=== PATIENT | female | born 1970 | race Caucasian/White ===

== ENCOUNTER → 2019-09-08 15:48 | Outpatient (CLI) | payer OTHER, SELFPAY ==
--- NOTE | ~2019-09-08 | MM_ITS ---
EXAMINATION: MM screening [facility] BI w moi HISTORY: Screening mammogram TECHNIQUE: Craniocaudal and mediolateral oblique 3-D tomosynthesis images were obtained and synthetic 2-D images were generated. CAD analysis was submitted and interpreted. COMPARISON: Comparison to multiple prior studies sequentially, with oldest reviewed study dated 07/08. BREAST PARENCHYMAL COMPOSITION: There are scattered areas of fibroglandular density. FINDINGS: There is no evidence of suspicious mass, calcification, or architectural distortion to sugg est malignancy in either breast. There has been no suspicious interval change. IMPRESSION: 1. No mammographic evidence of malignancy. 2. Recommend routine screening mammography in one year. BI-RADS Category 1: Negative Reviewed, dictated and finalized at location A.
== END ==
PROVIDERS: PCP Internal Medicine; Visit Provider Obstetrics & Gynecology
DX: Z12.31 Encounter for screening mammogram for malignant neoplasm of breast (principal)
CPT/HCPCS: 77063; 77067

== ENCOUNTER 2020-10-13 18:19 | Emergency (ER) | payer OTHER, SELFPAY ==
[2020-10-13 18:48] VITALS: BP 135/85; PULSE 96; RESP 17; TEMP 36.8; O2SAT 97
[2020-10-13 19:51] VITALS: BP 121/87; PULSE 84; RESP 18; O2SAT 97
--- NOTE | 2020-10-13 19:58 | ED.GENADULT ---
HPI - General Adult General Chief complaint: Nausea/Vomiting/Diarrhea Stated complaint: stomach flu since Sunday Time Seen by Provider: 10/13/20 19:47 Source: patient and RN notes reviewed Mode of arrival: ambulatory Limitations: no limitations History of Present Illness HPI narrative: Patient is a 49-year-old female who presents to emergency department for evaluation of vomiting and diarrhea since Sunday her has had similar symptoms prior to her patient notes that she has inability to keep down fluids patient noted vomiting and diarrhea. Patient now has left-sided migraine with history of migraines but has been unable to take her medications secondary to vomiting Related Data Allergies Allergy/AdvReac Type Severity Reaction Status Date / Time penicillin G Allergy Unknown Verified 01/28/13 14:42 Penicillins Allergy Unknown Verified 02/07/10 09:03 Review of Systems Review of Systems: All systems reviewed & are unremarkable except as noted in HPI and below PMFSH Past Medical History Medical History (Updated 10/13/20 @ 20:02 by Arden Bergman PA-C) Migraine headache Family History Family History (Updated 06/20/17 @ 10:40 by DOCTOR UNKNOWN) Father Patient's father is in good health Diabetes mellitus Hypertension Family history of malignant neoplasm Mother Family history of malignant neoplasm of breast in first degree relative Social History Social History Smoking status: Never smoker Second hand tobacco smoke exposure: No Alcohol intake: never Exam Narrative: Exam Narrative: GENERAL: Well-appearing, obese, and in no acute distress. HEAD: Normocephalic, atraumatic. EYES: PERRLA and EOMI. ENT: Nares clear, no rhinorrhea or epistaxis. Mucous membranes moist. CHEST: Clear to auscultation. No respiratory distress. No wheezes rales or rhonchi HEART: Regular rate and rhythm. No murmur heard. Normal peripheral pulses. ABDOMEN: Soft, nontender, nondistended EXTREMITIES: Normal range of motion. No edema. SKIN: Warm, dry, no rash. NEURO: No focal deficits. Alert and oriented x3. Cranial nerves II through XII grossly intact PSYCH: Normal mood and affect. Course Course Emergency Course: Patient evaluated for symptoms of vomiting diarrhea migraine was medicated with improvement will be discharged home treated outpatient afebrile nontoxic-appearing no high risk changes in the blood work felt appropriate for reevaluation on outpatient basis given reasons to return Vital Signs Vital signs: Vital Signs Temperature 98.2 F 10/13/20 18:48 Pulse Rate 96 10/13/20 18:48 Respiratory Rate 17 10/13/20 18:48 Blood Pressure 135/85 10/13/20 18:48 Pulse Oximetry 97 10/13/20 18:48 Temperature 98.2 F 10/13/20 18:48 Pulse Rate 84 10/13/20 19:51 Respiratory Rate 18 10/13/20 19:51 Blood Pressure 121/87 10/13/20 19:51 Pulse Oximetry 97 10/13/20 19:51 Medical Decision Making [facility] Narrative Medical decision making narrative: Patient in the room no distress resting comfortably with improvement with medication Vital Signs Vital Signs: Vital Signs Temperature 98.2 F 10/13/20 18:48 Pulse Rate 96 10/13/20 18:48 Respiratory Rate 17 10/13/20 18:48 Blood Pressure 135/85 10/13/20 18:48 Pulse Oximetry 97 10/13/20 18:48 Temperature 98.2 F 10/13/20 18:48 Pulse Rate 84 10/13/20 19:51 Respiratory Rate 18 10/13/20 19:51 Blood Pressure 121/87 10/13/20 19:51 Pulse Oximetry 97 10/13/20 19:51 Lab Data Result diagrams: 10/13/20 19:55 10/13/20 19:55 Labs: Lab Results 10/13/20 10/13/20 Range/Units 19:55 19:55 WBC 4.1 L (4.5-10.0) K/mm3 RBC 5.31 (4.2-5.4) M/mm3 Hgb 14.6 (12.0-15.0) g/dL Hct 45.0 (37.0-47.0) % MCV 84.7 (80-100) fl MCH 27.5 (26-34) pg MCHC 32.4 (32-36) g/dl RDW 14.2 (11.5-14.5) % Plt Count 206 (150-375) k/
[2020-10-13 20:01] LABS: Basophils Percent Auto 0.2 % (0.2-1.2); Eosinophils Percent Auto 0.7 % (0-4.4); Hemoglobin 14.6 g/dL (12.0-15.0); Immature Granulocyte Absolute 0.02 K/mm3 (0.00-0.031); Immature Granulocyte Percent A 0.5 % (0-0.5); Lymphocytes Absolute Auto 0.74 K/mm3 (0.9-3.2); Lymphocytes Percent Auto 18.1 % (18.3-44.2); Mean Corpuscular HGB Conc 32.4 g/dl (32-36); Mean Corpuscular Hemoglobin 27.5 pg (26-34); Mean Corpuscular Volume 84.7 fl (80-100); Mean Platelet Volume 10.9 fl (7.4-10.4); Monocytes Absolute Auto 0.6 K/mm3 (0.1-0.6); Monocytes Percent Auto 13.5 % (2.6-8.5); Neutrophils Absolute Auto 2.7 K/mm3 (1.3-6.7); Platelet Count Result 206 k/mm3 (150-375); Red Blood Count 5.31 M/mm3 (4.2-5.4); Red Cell Distribution Width 14.2 % (11.5-14.5); White Blood Count 4.1 K/mm3 (4.5-10.0)
[2020-10-13] MEDS: SODIUM CHLORIDE 0.9% IV 1,000 ML 999 ML IV CONT (20:03)
[2020-10-13] MEDS: KETOROLAC 30 MG/ML VIAL (*BKC) IV PUSH (20:05)
[2020-10-13] MEDS: diphenhydrAMINE HCl INJ 50 MG/ML VIAL 25 MG IV PUSH (20:05)
[2020-10-13 20:11] LABS: Alanine Aminotransferase 21 U/L (4-35); Albumin Level 4.8 g/dL (3.5-5.1); Alkaline Phosphatase 76 U/L (38-126); Anion Gap 10 mmol/L (8-16); Aspartate Amino Transferase 33 U/L (14-36); Bilirubin,Total 0.5 mg/dL (0.2-1.3); Blood Urea Nitrogen 13 mg/dL (7-17); Calcium 8.9 mg/dL (8.4-10.2); Carbon Dioxide 26 mmol/L (22-30); Chloride 103 mmol/L (98-107); Estimated Glomerular Filt Rate > 60; Glucose 106 mg/dL (65-105); Lipase 39 U/L (23-300); Potassium 3.2 mmol/L (3.4-5.0); Sodium 139 mmol/L (137-145)
[2020-10-13] MEDS: LORazepam INJ (*CRX) 2 MG/ML VIAL 1 MG IV PUSH (20:55)
[2020-10-13] MEDS: METOCLOPRAMIDE HCL INJ 10 MG/2 ML VIAL IV PUSH (20:55)
[2020-10-13 21:00] VITALS: BP 116/75; PULSE 74; RESP 16; O2SAT 96
[2020-10-13 21:50] VITALS: BP 105/63; PULSE 78; RESP 16; O2SAT 96
== END 2020-10-13 21:50 | disposition home or self-care (01) ==
PROVIDERS: Emergency Provider Emergency Medicine; PCP Internal Medicine
DX: R51.9 Headache, unspecified (principal); R10.9 Unspecified abdominal pain
CPT/HCPCS: 36415; 80053; 83690; 85025; 96361; 96374; 96375; 99284; J1200; J1885; J2060; J2765; J7030

== ENCOUNTER 2021-04-15 00:55 | Day surgery (SDC) | payer OTHER, SELFPAY ==
[2021-04-07 12:10] VITALS: BMI 41.2
[2021-04-15 09:35] VITALS: BP 138/110; PULSE 75; RESP 20; TEMP 36.4; O2SAT 98; BMI 40.1
--- NOTE | 2021-04-15 09:56 | PM.HPGS ---
History of Present Illness History of Present Illness Consent: Risks, benefits, and alternatives have been discussed and questions answered. Patient agrees to proceed with procedure. Chief complaint: GERD Narrative: Cristina Cornejo is a 50 year old female with gerd for years but lately more symptomatic and sometimes waking up at night with heartburn. She tried rounds of prevacid and prilosec that helped while she was taking but not using anything in daily basis. Review of Systems Constitutional: Constitutional: Denies headache(s) and Denies weakness Eyes: Eyes: Denies blurry vision ENT: Reports Normal hearing present, Denies headache(s) and Denies neck pain Cardiovascular: Cardiovascular: Denies chest pain and Denies dyspnea Respiratory: Respiratory: Denies dyspnea Gastrointestinal: Gastrointestinal: Reports no additional gastrointestinal complaints Genitourinary: Genitourinary: Denies dysuria Musculoskeletal: Musculoskeletal: Denies neck pain Integumentary/Breasts: Skin/Breast: Denies dry skin Neurologic: Reports Normal hearing present, Denies headache(s) and Denies weakness Psychiatric: Psychiatric: Denies anxiety Endocrine: Endocrine: Denies change in body appearance Hematologic/Lymphatic: Hematologic/Lymphatic: Denies easy bleeding Allergic/Immunologic: Allergic/Immunologic: Denies urticaria PMFSH Past Medical History Medical History Migraine headache Family History Family History Father Patient's father is in good health Diabetes mellitus Hypertension Family history of malignant neoplasm Mother Family history of malignant neoplasm of breast in first degree relative Social History Social History Smoking status: Never smoker Second hand tobacco smoke exposure: No Alcohol intake: never Substance use: never Substance use type: does not use Living arrangements: alone Spiritual care concerns: No Meds Home Medications and Allergies Home Medications Medication Instructions Recorded Confirmed Type onabotulinumtoxinA 200 unit 200 unit IM ONCE 11/03/20 04/07/21 History solution for injection sumatriptan succinate 100 mg tablet 100 mg PO ONCE 11/03/20 04/07/21 History Allergies Allergy/AdvReac Type Severity Reaction Status Date / Time penicillin G Allergy Unknown Unknown Verified 04/15/21 09:34 Penicillins Allergy Unknown Unknown Verified 04/15/21 09:34 Vital Signs Vital Signs - 24 hr 04/15/21 09:35 Temperature 97.5 F L Pulse Rate 75 Respiratory Rate 20 Blood Pressure 138/110 H Pulse Oximetry 98 Exam Const: General: comfortable and no acute distress HENMT: General nose exam: Normal nares present Eyes: General: appearance normal, both eyes and all related structures Neck: Neck: no JVD Resp: Auscultation: clear to auscultation bilaterally Cardio: Rate: regular rate Rhythm: regular rhythm GI: Inspection: non-distended GI Palp: Yes Soft to palpation Skin: General skin exam: normal color Neuro: General: gait normal Speech: normal speech Extrem: General: normal to inspection Psych: Mental Status: mental status grossly normal Assessment and Plan Assessment and plan (1) Gastro-esophageal reflux disease without esophagitis: Code(s): K21.9 - Gastro-esophageal reflux disease without esophagitis Status: Acute Assessment and Plan: egd with bx, probably will need ppi daily
--- NOTE | 2021-04-15 09:57 | P.PNAN_ITS ---
Anes - Initial Pre Proc Eval Procedure: Operation Date: 04/15/21 10:30 Proposed Procedures p Esophagogastroduodenoscopy - Jose J Giron MD Date/Time: 04/15/21 09:57 Surgeon: Jose J Giron MD Pre Op Diagnosis: GERD Patient Data Age: 50 Gender: F Height: 1.63 m Weight: 106.2 kg Last Vital Signs Temp 97.5 F L 04/15/21 09:35 Pulse 75 04/15/21 09:35 Resp 20 04/15/21 09:35 BP 138/110 H 04/15/21 09:35 Pulse Ox 98 04/15/21 09:35 Allergies Allergy/AdvReac Type Severity Reaction Status Date / Time penicillin G Allergy Unknown Unknown Verified 04/15/21 09:34 Penicillins Allergy Unknown Unknown Verified 04/15/21 09:34 Home Medications Medication Instructions Recorded Confirmed Type onabotulinumtoxinA 200 unit 200 unit IM ONCE 11/03/20 04/07/21 History solution for injection sumatriptan succinate 100 mg tablet 100 mg PO ONCE 11/03/20 04/07/21 History Patient hx anesthesia problems: none Family hx anesthesia problems: none Results Review: All pre-operative results and documents have been reviewed as part of the pre-operative evaluation. [facility] Past Medical History Medical History Migraine headache Family History Family History Father Patient's father is in good health Diabetes mellitus Hypertension Family history of malignant neoplasm Mother Family history of malignant neoplasm of breast in first degree relative Social History Social History Smoking status: Never smoker Second hand tobacco smoke exposure: No Alcohol intake: never Substance use: never Substance use type: does not use Living arrangements: alone Spiritual care concerns: No Anes - Eval Final PreProcedure Day of Procedure 04/15/21 09:57 Patient weight: morbidly obese Heart: regular rate and rhythm Lungs: clear to auscultation Airway: Mallampati scale class III Neurological: alert and oriented Last oral intake: >/= 8 hours ASA classification: III Emergent: no Anesthetic plan: proceed Anesthesia type and monitoring: general GIVS and standard monitoring Results Review: All pre-operative results and documents have been reviewed as part of the pre-operative evaluation. Informed Consent: The patient's anesthetic plan and its attendant risks and benefits were discussed with the patient/family/POA. Questions were solicited and answers provided to the satisfaction of the patient/family/POA.
[2021-04-15 09:58] VITALS: BP 131/93
[2021-04-15] MEDS: LACTATED RINGERS 1,000 ML 150 ML IV CONT (10:06)
[2021-04-15 10:45] VITALS: BP 118/69; PULSE 78; RESP 18; O2SAT 99
[2021-04-15 10:55] VITALS: BP 115/69; PULSE 76; RESP 14; O2SAT 99
[2021-04-15 11:05] VITALS: BP 129/81; PULSE 71; RESP 15; O2SAT 100
== END 2021-04-15 11:07 | disposition home or self-care (01) ==
PROVIDERS: PCP Internal Medicine; Visit Provider Internal Medicine Gastroenterology
PROC: 0DJ08ZZ Inspection of Upper Intestinal Tract, Via Natural or Artificial Opening Endoscopic (ICD-10-PCS; CPT 43235; principal; 2021-04-15 10:30)
DX: K21.9 Gastro-esophageal reflux disease without esophagitis (principal); R07.89 Other chest pain; K44.9 Diaphragmatic hernia without obstruction or gangrene; K29.70 Gastritis, unspecified, without bleeding; E66.01 Morbid (severe) obesity due to excess calories; Z68.41 Body mass index [BMI] 40.0-44.9, adult
CPT/HCPCS: 43239; 88305; J2704; J7120

== ENCOUNTER 2021-05-02 16:56 | Emergency (ER) | payer OTHER, SELFPAY ==
--- NOTE | 2021-05-02 16:57 | ECG_ITS ---
Measurements Intervals [place] Rate: 74 P: 42 SC: 143 QRS: -10 QRSD: 88 T: 40 QT: 360 QTc: 400 Interpretive Statements SINUS RHYTHM WITH SINUS ARRHYTHMIA BASELINE ARTIFACT- I, II, III, AVR, AVL, AVF NORMAL ECG Electronically Signed On 05-02-2021 20:05:27 SENIOR LOGISTICS MANAGER by Johnny Cardenas D.O.
[2021-05-02 16:59] VITALS: BP 134/81; PULSE 84; RESP 18; TEMP 36.2; O2SAT 99
[2021-05-02 19:38] VITALS: BP 132/92; PULSE 74; RESP 12; O2SAT 98
[2021-05-02 19:42] VITALS: BP 132/92; PULSE 71; RESP 13; O2SAT 100
[2021-05-02 20:34] LABS: Basophils Percent Auto 0.5 % (0.2-1.2); Eosinophils Absolute Auto 0.2 K/mm3 (0-0.3); Eosinophils Percent Auto 2.4 % (0-4.4); Hematocrit 39.7 % (37.0-47.0); Hemoglobin 13.1 g/dL (12.0-15.0); Immature Granulocyte Absolute 0.03 K/mm3 (0.00-0.031); Immature Granulocyte Percent A 0.4 % (0-0.5); Lymphocytes Absolute Auto 2.73 K/mm3 (0.9-3.2); Lymphocytes Percent Auto 33.3 % (18.3-44.2); Mean Corpuscular Volume 84.8 fl (80-100); Mean Platelet Volume 11.4 fl (7.4-10.4); Monocytes Absolute Auto 0.7 K/mm3 (0.1-0.6); Monocytes Percent Auto 8.6 % (2.6-8.5); Neutrophils Absolute Auto 4.5 K/mm3 (1.3-6.7); Neutrophils Percent Auto 54.8 % (45.5-73.1); Platelet Count Result 243 k/mm3 (150-375); Red Blood Count 4.68 M/mm3 (4.2-5.4); Red Cell Distribution Width 13.6 % (11.5-14.5); White Blood Count 8.2 K/mm3 (4.5-10.0)
[2021-05-02 20:48] LABS: D Dimer 0.27 ug/mL (<0.48)
[2021-05-02 20:51] VITALS: BP 131/78; PULSE 71; RESP 15; O2SAT 99
[2021-05-02 20:53] LABS: Alanine Aminotransferase 16 U/L (4-35); Albumin Level 4.4 g/dL (3.5-5.1); Alkaline Phosphatase 71 U/L (38-126); Anion Gap 9 mmol/L (8-16); Aspartate Amino Transferase 26 U/L (14-36); Bilirubin,Total 0.4 mg/dL (0.2-1.3); Blood Urea Nitrogen 15 mg/dL (7-17); Calcium 9.7 mg/dL (8.4-10.2); Carbon Dioxide 25 mmol/L (22-30); Chloride 99 mmol/L (98-107); Estimated CRCL calculation 116 ml/min; Estimated Glomerular Filt Rate > 60; Glucose 95 mg/dL (65-110); Potassium 3.2 mmol/L (3.4-5.0); Sodium 133 mmol/L (137-145)
[2021-05-02 20:54] LABS: INR 0.9; Prothrombin Time 12.3 Seconds (11.1-14.7)
[2021-05-02 21:06] LABS: Troponin I < 0.012 ng/mL (0.000-0.034)
--- NOTE | 2021-05-02 22:03 | ED.ARRPALP ---
HPI - Arrhythmia/Palpitations General Chief Complaint: Arrhythmia/Palpitations Stated Complaint: fluttering in her chest Time Seen by Provider: 05/02/21 19:57 Source: patient Mode of arrival: ambulatory Limitations: no limitations History of Present Illness HPI narrative: 50-year-old here with complaints of palpitations on and off for past 1 week. She states that since this afternoon heart has been fluttering. She feels occasionally lightheaded she denies any chest pain. No history of fever or chills. Denies nausea vomiting diarrhea. MD complaint: palpitations and irregular heart beat Onset (ago): day(s) (1) Duration: intermittent Severity: moderate Context: occurred during rest Associated symptoms: shortness of breath Related Data Home Medications Medication Instructions Recorded Confirmed onabotulinumtoxinA 200 unit 200 unit IM MONTHLY 11/03/20 04/07/21 solution for injection sumatriptan succinate 100 mg tablet 100 mg PO ONCE 11/03/20 04/07/21 Allergies Allergy/AdvReac Type Severity Reaction Status Date / Time penicillin G Allergy Unknown Unknown Verified 05/02/21 19:41 Penicillins Allergy Unknown Unknown Verified 05/02/21 19:41 Review of Systems Review of Systems: All systems reviewed & are unremarkable except as noted in HPI and below Constitutional: Constitutional: Reports no additional constitutional complaints Eyes: Eyes: Reports no additional eye complaints ENT: Reports system reviewed and no additional complaints, except as documented Cardiovascular: Cardiovascular: Reports as per HPI Respiratory: Respiratory: Reports no additional respiratory complaints Gastrointestinal: Gastrointestinal: Reports no additional gastrointestinal complaints Musculoskeletal: Musculoskeletal: Reports no additional musculoskeletal complaints Neurologic: Reports system reviewed and no additional complaints, except as documented [facility] Past Medical History Medical History Migraine headache Family History Family History Father Patient's father is in good health Diabetes mellitus Hypertension Family history of malignant neoplasm Mother Family history of malignant neoplasm of breast in first degree relative Social History Social History Smoking status: Never smoker Second hand tobacco smoke exposure: No Alcohol intake: never Substance use: never Substance use type: does not use Spiritual care concerns: No Exam Narrative: GENERAL: Well-appearing, well-nourished, and in no acute distress. HEAD: Normocephalic, atraumatic. EYES: PERRLA and EOMI. NECK: Supple. CHEST: Clear to auscultation. No respiratory distress. HEART: Regular rate and rhythm. No murmur heard. Normal peripheral pulses. ABDOMEN: Soft, nontender, nondistended, normal active bowel sounds. EXTREMITIES: Normal range of motion. No edema. SKIN: Warm, dry, no rash. NEURO: No focal deficits. Alert and oriented x3. PSYCH: Normal mood and affect. Course Course Emergency Course: Patient was placed on the monitor she remained in normal sinus rhythm with no ectopies. I did inform patient about her lab work and EKG findings. Advised her to contact you Vital Signs Vital signs: Vital Signs Temperature 36.2 C L 05/02/21 16:59 Pulse Rate 84 05/02/21 16:59 Respiratory Rate 18 05/02/21 16:59 Blood Pressure 134/81 05/02/21 16:59 Pulse Oximetry 99 05/02/21 16:59 Temperature 36.2 C L 05/02/21 16:59 Pulse Rate 79 05/02/21 22:08 Respiratory Rate 25 H 05/02/21 22:08 Blood Pressure 114/52 L 05/02/21 22:08 Pulse Oximetry 100 05/02/21 22:08 MDM - Arrhythmia/Palpitations Differential Diagnosis Differential diagnosis: Likely palpitations, anxiety, sinus tachycardia and artial fibrillation Medical Records Attestation: I reviewed the patient's medical
[2021-05-02 22:08] VITALS: BP 114/52; PULSE 79; RESP 25; O2SAT 100
[2021-05-02] MEDS: POTASSIUM CHLORIDE 20 MEQ PACKET (FOR LIQUID) PO (22:22)
[2021-05-02 22:28] VITALS: BP 112/62; PULSE 82; RESP 17; O2SAT 100
== END 2021-05-02 22:29 | disposition home or self-care (01) ==
PROVIDERS: Emergency Provider Family Medicine; PCP Internal Medicine
DX: E87.6 Hypokalemia (principal); R00.2 Palpitations
CPT/HCPCS: 36415; 80053; 84443; 84484; 85025; 85380; 85610; 93005; 99284; A9270

== ENCOUNTER 2022-10-02 06:27 | Day surgery (SDC) | payer OTHER, SELFPAY ==
[2022-09-26 14:25] VITALS: BMI 36.2
[2022-09-27 10:48] VITALS: BMI 35.9
--- NOTE | 2022-09-29 15:20 | P.PNAN_ITS ---
Anes - Initial Pre Proc Eval Procedure: Operation Date: 10/02/22 08:00 Proposed Procedures p Esophagogastroduodenoscopy - Jose J Giron MD Date/Time: 09/29/22 15:20 Surgeon: Jose J Giron MD Pre Op Diagnosis: Gerd, History of other diseases of digestive sys. Patient Data Age: 51 Gender: F Height: 1.63 m Weight: 95 kg Allergies Allergy/AdvReac Type Severity Reaction Status Date / Time penicillin G Allergy Intermediate Rash Verified 10/02/22 07:22 Penicillins Allergy Intermediate Rash Verified 10/02/22 07:22 Home Medications Medication Instructions Recorded Confirmed Type onabotulinumtoxinA 200 unit 200 unit IM MONTHLY 11/03/20 10/02/22 History solution for injection (Botox) sumatriptan succinate 100 mg 100 mg PO ONCE 11/03/20 10/02/22 History tablet (Imitrex) atogepant 60 mg tablet (Qulipta) 60 mg PO DAILY 09/21/22 10/02/22 History omeprazole 20 mg tablet,delayed 20 mg PO BID #180 tabs 09/21/22 10/02/22 Rx release Patient hx anesthesia problems: none Family hx anesthesia problems: none Results Review: All pre-operative results and documents have been reviewed as part of the pre- operative evaluation. [facility] Past Medical History Medical History (Updated 09/29/22 @ 15:20 by Sterling Liz MD) Migraine headache Obesity Family History Family History Father Patient's father is in good health Diabetes mellitus Hypertension Family history of malignant neoplasm Mother Family history of malignant neoplasm of breast in first degree relative Social History Social History Smoking status: Never smoker Second hand tobacco smoke exposure: No Alcohol intake: current Alcohol use details: rarely Substance use: never Substance use type: does not use Lack of Transportation: No Lack of Food: Never True Current Housing: I Have Housing Concerned About Future Housing: No Difficulty Paying Gas/Electric Bills: No Difficulty Paying for Meds: No Currently Unemployed: No Education: Master's Degree or Higher Difficulty w/ Childcare or Family Care: No Living arrangements: with family Spiritual care concerns: No Anes - Eval Final PreProcedure Day of Procedure 09/29/22 15:20 Patient weight: obese Heart: regular rate and rhythm Lungs: clear to auscultation Airway: Mallampati scale class III Neurological: alert and oriented Last oral intake: >/= 8 hours ASA classification: II Emergent: no Anesthetic plan: proceed Anesthesia type and monitoring: general GIVS and standard monitoring Results Review: All pre-operative results and documents have been reviewed as part of the pre- operative evaluation. Informed Consent: The patient's anesthetic plan and its attendant risks and benefits were discussed with the patient/family/POA. Questions were solicited and answers provided to the satisfaction of the patient/family/POA.
[2022-10-02 06:45] VITALS: BP 137/96; PULSE 72; RESP 20; TEMP 36.4; O2SAT 98
[2022-10-02] MEDS: LACTATED RINGERS 1,000 ML 150 ML IV CONT (07:25)
--- NOTE | 2022-10-02 07:53 | PM.HPGS ---
History of Present Illness History of Present Illness Consent: Risks, benefits, and alternatives have been discussed and questions answered. Patient agrees to proceed with procedure. Chief complaint: Gerd, History of other diseases of digestive sys. Narrative: Cristina Cornejo is a 51 year old female with gerd on ppi but lately more symptomatic, last egd 2020 with 5 cm hiatal hernia, bx of esophagitis, gastric and duodenum were normal Review of Systems Constitutional: Constitutional: Denies headache(s) and Denies weakness Eyes: Eyes: Denies blurry vision ENT: Reports Normal hearing present, Denies headache(s) and Denies neck pain Cardiovascular: Cardiovascular: Denies chest pain and Denies dyspnea Respiratory: Respiratory: Denies dyspnea Gastrointestinal: Gastrointestinal: Reports no additional gastrointestinal complaints Genitourinary: Genitourinary: Denies dysuria Musculoskeletal: Musculoskeletal: Denies neck pain Integumentary/Breasts: Skin/Breast: Denies dry skin Neurologic: Reports Normal hearing present, Denies headache(s) and Denies weakness Psychiatric: Psychiatric: Denies anxiety Endocrine: Endocrine: Denies change in body appearance Hematologic/Lymphatic: Hematologic/Lymphatic: Denies easy bleeding Allergic/Immunologic: Allergic/Immunologic: Denies urticaria PMFSH Past Medical History Medical History (Updated 10/02/22 @ 07:54 by Jose J Giron MD) Hiatal hernia Migraine headache Obesity Family History Family History Father Patient's father is in good health Diabetes mellitus Hypertension Family history of malignant neoplasm Mother Family history of malignant neoplasm of breast in first degree relative Social History Social History Smoking status: Never smoker Second hand tobacco smoke exposure: No Alcohol intake: current Alcohol use details: rarely Substance use: never Substance use type: does not use Lack of Transportation: No Lack of Food: Never True Current Housing: I Have Housing Concerned About Future Housing: No Difficulty Paying Gas/Electric Bills: No Difficulty Paying for Meds: No Currently Unemployed: No Education: Master's Degree or Higher Difficulty w/ Childcare or Family Care: No Living arrangements: with family Spiritual care concerns: No Meds Home Medications and Allergies Home Medications Medication Instructions Recorded Confirmed Type onabotulinumtoxinA 200 unit 200 unit IM MONTHLY 06/09/21 05/08/23 History solution for injection (Botox) sumatriptan succinate 100 mg 100 mg PO ONCE 11/03/20 10/02/22 History tablet (Imitrex) atogepant 60 mg tablet (Qulipta) 60 mg PO DAILY 09/21/22 10/02/22 History omeprazole 20 mg tablet,delayed 20 mg PO BID #180 tabs 09/21/22 10/02/22 Rx release Allergies Allergy/AdvReac Type Severity Reaction Status Date / Time penicillin G Allergy Intermediate Rash Verified 10/02/22 07:22 Penicillins Allergy Intermediate Rash Verified 10/02/22 07:22 Vital Signs Vital Signs - 24 hr 10/02/22 06:45 Temperature 97.6 F Pulse Rate 72 Respiratory Rate 20 Blood Pressure 137/96 H Pulse Oximetry 98 Oxygen Delivery Room Air Exam Const: General: comfortable and no acute distress HENMT: Face/Nose/Sinus: Normal nares present Eyes: General: appearance normal, both eyes and all related structures Neck: Neck: no JVD Resp: Auscultation: clear to auscultation bilaterally Cardio: Rate: regular rate Rhythm: regular rhythm GI: Inspection: non-distended GI Palp: Yes Soft to palpation Skin: General skin exam: normal color Neuro: General: gait normal Speech: normal speech Extrem: General: normal to inspection Psych: Mental Status: mental status grossly normal Assessment and Plan Assessment and plan (1) Gastro-esophageal reflux disease withou
[2022-10-02 08:08] VITALS: BP 113/78; PULSE 58; RESP 16; O2SAT 98
[2022-10-02 08:18] VITALS: BP 123/80; PULSE 58; RESP 16; O2SAT 100
[2022-10-02 08:28] VITALS: BP 120/84; PULSE 59; RESP 20; O2SAT 100
--- NOTE | 2022-10-10 08:35 | WPDANESPN ---
Anes - Prog Note Post-Op Date/Time: 10/10/22 08:35 Cardiovascular status: normal Respiratory status: normal Airway patency: baseline Mental status: baseline Post-Op hydration status: normal Vital Signs: Last Vital Signs Temp 36.4 C 10/02/22 06:45 Pulse 59 L 10/02/22 08:28 Resp 20 10/02/22 08:28 BP 120/84 10/02/22 08:28 Pulse Ox 100 10/02/22 08:28 O2 Del Method Room Air 10/02/22 08:28 Pain Score (VAS): 0 Post-procedural complaints: none Patient Feedback: Patient satisfied with anesthetic care.
== END 2022-10-02 08:39 | disposition home or self-care (01) ==
PROVIDERS: PCP Internal Medicine; Visit Provider Internal Medicine Gastroenterology
PROC: 0DJ08ZZ Inspection of Upper Intestinal Tract, Via Natural or Artificial Opening Endoscopic (ICD-10-PCS; CPT 43235; principal; 2022-10-02 08:00)
DX: K21.9 Gastro-esophageal reflux disease without esophagitis (principal)
CPT/HCPCS: 43239

== ENCOUNTER 2022-10-02 09:00 | Outpatient (NON) | payer OTHER, SELFPAY | END 2022-10-02 09:01 | disposition home or self-care (01) | LOC: ANHLAB 10-03 12:42 | PROVIDERS: PCP Internal Medicine; Visit Provider Internal Medicine Gastroenterology | DX: K44.9 Diaphragmatic hernia without obstruction or gangrene (principal) | CPT/HCPCS: 88305 ==

== ENCOUNTER 2022-10-09 13:15 | Outpatient (CLI) | payer OTHER, SELFPAY ==
--- NOTE | ~2022-10-09 | MMUS_ITS ---
EXAMINATION: MM diagnostic [facility] BI w moi, US breast RT limited HISTORY: Left breast asymmetry and right breast focal asymmetry on screening mammogram TECHNIQUE: Additional 3-D tomosynthesis images of the breasts were performed and synthetic 2-D images were generated. CAD analysis was submitted and interpreted. High resolution limited right breast ult rasound was performed. COMPARISON: 09/09/2022, 09/08/2019, 12/17/2017 BREAST PARENCHYMAL COMPOSITION: The breasts are heterogeneously dense, which may obscure small masses . FINDINGS: MAMMOGRAPHIC FINDINGS: There is a return to baseline fibroglandular appearance with spot compression of the breasts in the a reas questioned on screening mammogram. ULTRASOUND: There are multiple simple cysts of the outer right breast which measure up to 4 mm. No suspicious cys tic or solid mass is identified. IMPRESSION: 1. No mammographic or sonographic evidence of malignancy. 2. Recommend routine screening mammography in one year. BI-RADS Category 2: Benign finding(s). Reviewed, dictated and finalized at location A. IMPRESSION: 1. No mammographic or sonographic evidence of malignancy. 2. Recommend routine screening mammography in one year. BI-RADS Category 2: Benign finding(s).
== END 2022-10-09 13:16 | disposition home or self-care (01) ==
LOC: ANHIMG 13:16
PROVIDERS: PCP Internal Medicine; Visit Provider Internal Medicine
DX: R92.8 Other abnormal and inconclusive findings on diagnostic imaging of breast (principal)
CPT/HCPCS: 76642; 77062; 77066; G0279

== ENCOUNTER 2022-12-06 08:27 | Emergency (ER) | payer OTHER, SELFPAY ==
[2022-12-06 08:36] VITALS: BP 115/75; PULSE 84; RESP 16; TEMP 36.5; O2SAT 98
--- NOTE | 2022-12-06 09:04 | ED.WOUNDLAC ---
HPI - Wound/Laceration General Chief Complaint: Extremity Injury, Lower Stated Complaint: Lt Foot Infection Time Seen by Provider: 12/06/22 08:50 Source: patient and RN notes reviewed Mode of arrival: ambulatory Limitations: no limitations History of Present Illness HPI narrative: Patient presents today with a wound to the dorsum of her left foot that was sustained 10 days ago when she fell and scraped on some concrete while she was out of the country in [place]. She was subsequently seen at a clinic, the wound was debrided in she was placed on Augmentin which she has been taking since that time. States she believes the wound has started to heal she continues to have some pain and yellow drainage from the area. Patient does have a penicillin allergy and has had an intermittent rash but believes they prescribed the Augmentin to her due to a language barrier. Related Data Home Medications Medication Instructions Recorded Confirmed onabotulinumtoxinA 200 unit 200 unit IM MONTHLY 11/03/20 12/06/22 solution for injection (Botox) sumatriptan succinate 100 mg 100 mg PO ONCE 11/03/20 12/06/22 tablet (Imitrex) atogepant 60 mg tablet (Qulipta) 60 mg PO DAILY 09/21/22 12/06/22 Allergies Allergy/AdvReac Type Severity Reaction Status Date / Time penicillin G Allergy Intermediate Rash Verified 12/06/22 08:34 Penicillins Allergy Intermediate Rash Verified 12/06/22 08:34 Review of Systems Review of Systems: CONSTITUTIONAL: Denies body aches, fever, chills, or sweats. EYES: Denies visual changes, redness, or discharge. ENT: Denies rhinorrhea, congestion, sore throat, or otalgia. CARDIOVASCULAR: Denies chest pain, palpitations, or edema. RESPIRATORY: Denies cough or dyspnea. GASTROINTESTINAL: Denies abdominal pain, nausea, vomiting, or diarrhea. GENITOURINARY: Denies dysuria or hematuria. SKIN: Denies rash, itching. + wound to left foot MUSCULOSKELETAL: Denies back pain, joint pain, or myalgia. NEUROLOGIC: Denies headache, numbness, tingling, or weakness. PSYCH: Denies depression or anxiety. [facility] Past Medical History Medical History GERD (gastroesophageal reflux disease) Hiatal hernia Migraine headache Obesity Surgical History Surgical History History of hysterectomy Hx laparoscopic cholecystectomy Hx of tonsillectomy S/P placement of nerve stimulator implanted 2015 and removed 2016 Family History Family History Father Patient's father is in good health Diabetes mellitus Hypertension Family history of malignant neoplasm Mother Family history of malignant neoplasm of breast in first degree relative Social History Social History Smoking status: Never smoker Second hand tobacco smoke exposure: No Alcohol intake: current Alcohol use details: rarely Substance use: never Substance use type: does not use Lack of Transportation: No Lack of Food: Never True Current Housing: I Have Housing Concerned About Future Housing: No Difficulty Paying Gas/Electric Bills: No Difficulty Paying for Meds: No Currently Unemployed: No Education: Master's Degree or Higher Difficulty w/ Childcare or Family Care: No Living arrangements: with family Spiritual care concerns: No Comments At time of signature, I have reviewed and agree with nursing past medical, surgical, social and family history unless otherwise noted. Please see nursing chart for further information. There is no relevant family history pertinent to the presenting complaint Exam Narrative: GENERAL: Well-appearing, well-nourished, and in no acute distress. HEAD: Normocephalic, atraumatic. EYES: EOMI. No redness or drainage. Conjunctivae normal. ENT: Mucous membranes pink and moist.
== END 2022-12-06 09:09 | disposition home or self-care (01) ==
PROVIDERS: Emergency Provider Nurse Practitioner; PCP Internal Medicine
DX: S91.302D Unspecified open wound, left foot, subsequent encounter (principal); W19.XXXD Unspecified fall, subsequent encounter; K21.9 Gastro-esophageal reflux disease without esophagitis; E66.9 Obesity, unspecified; Z68.36 Body mass index [BMI] 36.0-36.9, adult
CPT/HCPCS: 99213; G0463

== ENCOUNTER 2022-12-09 01:28 | Emergency (ER) | payer OTHER, SELFPAY ==
--- NOTE | ~2022-12-09 | CT_ITS ---
EXAMINATION: CT abdomen pelvis wo con DATE: 12/09/2022 02:48 INDICATION: Epigastric abdominal pain radiating to back. Coronal concern for perforated ulcer. TECHNIQUE: Computed tomography (CT) of the abdomen and pelvis was performed without intravenous contr ast. Automated exposure control and iterative reconstruction technique were employed. Exam dose: 978 .83 mGy-cm total exam DLP. COMPARISON: 10/30/2022 gastrointestinal series 07/02/2013 CT abdomen pelvis FINDINGS: The lung bases are clear. Normal heart size. No pericardial or pleural effusion. Moderate sized hiatal hernia Status post cholecystectomy. The liver, spleen, pancreas are unremarkable. No bile duct or pancreatic duct dilatation. Normal morphology of the adrenal glands. Posterior right upper pole 2.7 cm renal cyst. The kidneys are otherwise unremarkable. No urinary trac t calculus or hydroureteronephrosis. The urinary bladder is unremarkable. Normal caliber of the abdominal aorta. No intraperitoneal or retroperitoneal or pelvic mass lesion or adenopathy or ascites is detected. No there is nonspecific soft tissue prominence in the gastric antral area, which is also present on t CT abdomen examination. No apparent gastric or duodenal perforation or intraperitoneal free air is noted. No bowel obstruction is noted. Chronic right lateral pelvic 3.7 x 6.6 mm calcification, unchanged since 2013. Small fat-containing umbilical hernia. Included skeletal structures are unremarkable. IMPRESSION: Moderate hiatal hernia Status post cholecystectomy 2.7 cm right renal cyst Reviewed, dictated and finalized at [facility] Reviewed, dictated and finalized at [facility].
[2022-12-09 01:30] VITALS: BP 152/83; PULSE 74; RESP 15; TEMP 36.3; O2SAT 99
--- NOTE | 2022-12-09 01:46 | ECG_ITS ---
Measurements Intervals [place] Rate: 63 P: 33 WI: 150 QRS: 16 QRSD: 85 T: 21 QT: 402 QTc: 414 Interpretive Statements SINUS RHYTHM DELAYED PRECORDIAL R/S TRANSITION BORDERLINE ECG COMPARED TO ECG 05/02/2021 17:01:52 NO SIGNIFICANT CHANGES Electronically Signed On 12-09-2022 7:46:47 CDT by Johnny Cardenas D.O.
--- NOTE | 2022-12-09 02:16 | PC.NURSE ---
pt c/c epigastric abd pain that radiates to the back. pt sts it started 4 months ago. pt sts no v/d. stool is normal and pt denies coffee ground emesis. and denies any AAA problem. Several people attempted IV and failed. US guided also failed by [facility]
--- NOTE | 2022-12-09 02:20 | ED.ABDPAIN ---
HPI - Abdominal Pain General Chief Complaint: Abdominal Pain <Gisela Mahan PA-C - Last Filed: 12/10/22 09:06> Stated Complaint: upper gastric pain <Gisela Mahan PA-C - Last Filed: 12/10/22 09:06> Time Seen by Provider: 12/09/22 01:36 <Gisela Mahan PA-C - Last Filed: 12/10/22 09:06> History of Present Illness HPI narrative: 52-year-old female with a history of erosive gastritis, hiatal hernia and GERD reports for evaluation of epigastric abdominal pain. States she has been having epigastric abdominal pain for many months, however she reports to the ED tonight because it woke her up from her sleep. States it is a dull ache in her epigastrium that radiates to her back which is normally how her pain is. She denies chest pain or shortness of breath, fever, body aches or chills, cough or congestion, vomiting, hematemesis or coffee-ground emesis, melena or hematochezia. Patient has been seeing Dr. Giron for her GERD. Her EGD on 10/02/2022 showed a medium hiatal hernia at the GE junction. The hiatal hernia. At a depth of 35 cm to 38 cm from the incisors. This is about 3 cm in size. Moderate esophagitis was seen in the body of stomach and in the antrum. She was evaluated by Dr. Escobar on 10/06/22 and was started on sucralfate and scheduled for an air contrast upper GI after 3 weeks of treatment. The air-contrast upper GI shows a moderate-sized sliding hiatal hernia. Patient states she has stopped taking several feet as she ran out of the prescription. States it was helpful while she was on the medication. She takes 20 mg of omeprazole daily. Of note, she is being treated for an infected wound to the dorsum of her left foot with p.o. Keflex after she scraped it on a dock. Reports improvement in the lesion, no drainage. <Gisela Mahan PA-C - Last Filed: 12/10/22 09:06> Related Data Home Medications: Home Medications Medication Instructions Recorded Confirmed onabotulinumtoxinA 200 unit 200 unit IM MONTHLY 11/03/20 12/06/22 solution for injection (Botox) sumatriptan succinate 100 mg 100 mg PO ONCE 11/03/20 12/06/22 tablet (Imitrex) atogepant 60 mg tablet (Qulipta) 60 mg PO DAILY 09/21/22 12/06/22 <Gisela Mahan PA-C - Last Filed: 12/10/22 09:06> Allergies/Adverse Reactions: Allergies Allergy/AdvReac Type Severity Reaction Status Date / Time penicillin G Allergy Intermediate Rash Verified 12/06/22 08:34 Penicillins Allergy Intermediate Rash Verified 12/06/22 08:34 <Gisela Mahan PA-C - Last Filed: 12/10/22 09:06> Review of Systems Review of Systems: CONSTITUTIONAL: Denies fever, chills EYES: Denies visual changes, redness, or discharge. ENT: Denies rhinorrhea, congestion, sore throat, or otalgia. CARDIOVASCULAR: Denies chest pain, palpitations, or edema. RESPIRATORY: Denies cough or dyspnea. GASTROINTESTINAL: See HPI GENITOURINARY: Denies dysuria or hematuria. SKIN: Denies rash or itching. MUSCULOSKELETAL: See HPI NEUROLOGIC: Denies headache, numbness, dizziness, or weakness. PSYCHIATRIC: Denies anxiety or depression. <Gisela Mahan PA-C - Last Filed: 12/10/22 09:06> [facility] Past Medical History Medical History: Medical History GERD (gastroesophageal reflux disease) Hiatal hernia Migraine headache Obesity <Gisela Mahan PA-C - Last Filed: 12/10/22 09:06> Surgical History Surgical History: Surgical History History of hysterectomy Hx laparoscopic cholecystectomy Hx of tonsillectomy S/P placement of nerve stimulator implanted 2015 and removed 2016 <Gisela Mahan PA-C - Last Filed: 12/10/22 09:06> Family History Family History: Family History Father Patient's father is in good health Diabetes mellitus Hypertension Family histor
[2022-12-09] MEDS: BELLADONNA ALK/PHENOB ELIX 10 ML, MAG HYDROX/ALUMINUM HYD/SIMETH 30 ML, LIDOCAINE HCL 2... PO (02:26)
[2022-12-09] MEDS: ONDANSETRON HCL ODT 4 MG TABLET PO (02:29)
[2022-12-09 02:40] LABS: Basophils Percent Auto 0.4 % (0.2-1.2); Eosinophils Absolute Auto 0.9 K/mm3 (0-0.3); Eosinophils Percent Auto 16.8 % (0-4.4); Hematocrit 45.3 % (37.0-47.0); Hemoglobin 14.3 g/dL (12.0-15.0); Immature Granulocyte Absolute 0.02 K/mm3 (0.00-0.031); Immature Granulocyte Percent A 0.4 % (0-0.5); Lymphocytes Percent Auto 25.4 % (18.3-44.2); Mean Corpuscular HGB Conc 31.6 g/dl (32-36); Mean Corpuscular Hemoglobin 27.7 pg (26-34); Mean Corpuscular Volume 87.6 fl (80-100); Mean Platelet Volume 11.4 fl (7.4-10.4); Monocytes Absolute Auto 0.4 K/mm3 (0.1-0.6); Monocytes Percent Auto 7.2 % (2.6-8.5); Neutrophils Absolute Auto 2.8 K/mm3 (1.3-6.7); Neutrophils Percent Auto 49.8 % (45.5-73.1); Platelet Count Result 234 k/mm3 (150-375); Red Blood Count 5.17 M/mm3 (4.2-5.4); Red Cell Distribution Width 13.7 % (11.5-14.5); White Blood Count 5.5 K/mm3 (4.5-10.0)
--- NOTE | 2022-12-09 02:43 | PC.NURSE ---
IV could not be established at this time, by RN's or PA
[2022-12-09] MEDS: FAMOTIDINE 20 MG TABLET PO (02:52)
[2022-12-09 03:13] LABS: Alanine Aminotransferase 15 U/L (6-35); Albumin Level 4.1 g/dL (3.5-5.1); Alkaline Phosphatase 44 U/L (38-126); Anion Gap 8 mmol/L (8-16); Aspartate Amino Transferase 29 U/L (14-36); Bilirubin,Total 0.6 mg/dL (0.2-1.3); Blood Urea Nitrogen 12 mg/dL (7-17); Calcium 8.7 mg/dL (8.4-10.2); Carbon Dioxide 29 mmol/L (22-30); Chloride 102 mmol/L (98-107); Estimated CRCL calculation 106 ml/min; Estimated Glomerular Filt Rate > 60; Glucose 97 mg/dL (65-110); Lipase 62 U/L (23-300); Potassium 4.1 mmol/L (3.4-5.0); Sodium 139 mmol/L (137-145)
[2022-12-09 03:26] VITALS: BP 129/80; PULSE 61; RESP 18; O2SAT 97
[2022-12-09 03:27] LABS: Add Urine Microscopic? YES; Appearance Urine Cloudy (Clear); Bacteria Urine None Seen /hpf; Bilirubin Urine Negative (Negative); Blood Urine Negative (Negative); Color Urine Yellow (Yellow); Glucose Urine UA Negative (Negative); Ketones Urine Negative (Negative); Leukocyte Esterase Ur Trace LEU/UL (Negative); Need Manual Microscopic Reviewed; Nitrate Urine Negative (Negative); Non Pathogenic Casts 0-2; Protein Urine Negative (Negative); RBC Urine 21-50 /hpf (0-2); Squamous Epithelial Cell Urine Many /hpf (Few); WBC Urine 0-5 /hpf; pH Urine 5.5 (5.0-9.0)
[2022-12-09 03:28] LABS: Troponin I < 0.012 ng/mL (0.000-0.034)
[2022-12-09] MEDS: MORPHINE SULFATE INJ (*CRX) 10 MG/ML AMP 4 MG IM (05:04)
[2022-12-09 05:09] VITALS: BP 126/74; PULSE 51; RESP 18; TEMP 36.3; O2SAT 100
--- NOTE | 2022-12-09 05:11 | PC.NURSE ---
pt sts that her epigastric pain is 4/10 non radiating. meds given
[2022-12-09 05:30] VITALS: O2SAT 98
[2022-12-09 05:31] VITALS: BP 125/79; PULSE 52; RESP 15; O2SAT 97
--- NOTE | 2022-12-09 06:04 | PC.NURSE ---
this Rn is concerned that pt just got Morphine IM and is driving. pt can sleep in room till 06:45
== END 2022-12-09 06:29 | disposition home or self-care (01) ==
PROVIDERS: Family Medicine; Emergency Provider Physician Assistant; PCP Internal Medicine
DX: K44.9 Diaphragmatic hernia without obstruction or gangrene (principal)
CPT/HCPCS: 36415; 74176; 80053; 81001; 81025; 83690; 84484; 85025; 93005; 96372; 99284; A9270; J2270

== ENCOUNTER 2023-02-26 10:39 | Outpatient (CLI) | payer OTHER, SELFPAY ==
--- NOTE | 2023-02-26 10:49 | ECG_ITS ---
Measurements Intervals [place] Rate: 63 P: 12 LA: 138 QRS: 18 QRSD: 93 T: 20 QT: 390 QTc: 399 Interpretive Statements SINUS RHYTHM POOR R-WAVE PROGRESSION BORDERLINE ECG COMPARED TO ECG 12/09/2022 02:25:58 NO SIGNIFICANT CHANGES Electronically Signed On 02-26-2023 13:39:54 CDT by Prabhu Barragan M.D.
== END 2023-02-26 10:40 | disposition home or self-care (01) ==
LOC: ANHSURGERY 10:43
PROVIDERS: PCP Internal Medicine; Visit Provider Surgery
DX: Z01.818 Encounter for other preprocedural examination (principal); K44.9 Diaphragmatic hernia without obstruction or gangrene; R93.1 Abnormal findings on diagnostic imaging of heart and coronary circulation
CPT/HCPCS: 36415; 86850; 86900; 86901; 93005

== ENCOUNTER 2023-03-07 12:43 | Observation (INO) | payer OTHER, SELFPAY ==
[2023-02-22 13:49] VITALS: BMI 36.9
--- NOTE | 2023-02-22 13:54 | PC.NURSE ---
Addendum entered by Rigoberto Titus RN 02/22/23 14:04: Shower the day of surgery with Hebiclense (Chlorhexadine gluconate). Original Note: Report to the Outpatient Waiting Room, entrance under the green pavilion located off [facility], at time _0930_ on date _[id number]_. Planned Procedure Time: _1130_. Time changes happen often and if your time is changed the preop area will call you the afternoon before. - You and your visitor will be asked to self-screen and do not enter if you have any COVID symptoms. - A mask is optional within the hospital at this time. Clear liquid evening meal day before surgery. Patients may have clear liquids (water, carbonated beverages, clear teas, apple juice) until 3 hours prior to surgery with a maximum of 20 ounces. - No food from midnight until time of surgery Take the following medications with a SIP of water the morning of surgery: ___None DO NOT STOP ANY OF YOUR OTHER PRESCRIPTION MEDICATIONS PRIOR TO SURGERY ?EXCEPT THE FOLLOWING Medications to discontinue per physician None Date to take last dose Please no make-up, nail syrian, hairspray, perfume, deodorant, or body powder the day of surgery. No jewelry (including any body piercings) or valuables the day of surgery, leave them at home. Please take a shower or bath the night before, or the morning of, surgery with an antibacterial soap. Wear comfortable, loose fitting clothing. - Jewelry must be removed prior to entering the operating room. Rings and piercings that are not removed may be cut off. - The hospital will not accept responsibility for valuables. - Please leave all valuables, including medications, at home the day of surgery. If you are going home after surgery, a licensed stage driver must drive you home. - NO public transportation without another adult if you receive anesthesia. - We recommend that an adult stay with you for 24 hours following discharge. - We also recommend that you do not drive, make important decision, drink alcoholic beverages, or take any drugs that were not prescribed by your health care provider for at least 24 hours after your discharge time. Follow any additional instructions given to you from your surgeon. If you or anyone in your household have experienced Covid symptoms in the past week, please notify your surgeon or the nurse liaison at the phone number below for possible testing. Telephone instructions given to _Patient__and asked if any additional questions and then verbalized understanding. Patient advised to call surgeon office or pre surgery nurse liaison [phone] if any additional questions.
[2023-03-06] VITALS (11 sets, daily range): BP systolic 128–148; BP diastolic 67–89; PULSE 77–92; RESP 12–16; TEMP 35.4–36.9; O2SAT 97–100; BMI 36.1
[2023-03-06] MEDS: LACTATED RINGERS 1,000 ML 30 ML IV CONT ×2 (10:25→16:06)
[2023-03-06] MEDS: KETOROLAC 15 MG/ML VIAL (*BKC) IV PUSH (10:45)
[2023-03-06] MEDS: ACETAMINOPHEN 500 MG TABLET 1000 MG PO (10:45)
--- NOTE | 2023-03-06 12:00 | SUR.PREOP ---
1130- Notified patient surgery start time will be delayed. Patient verbalized understanding and denying needs at this time. 1200- Patient offered restroom and declining at this time.
--- NOTE | 2023-03-06 12:51 | WPDHPUPDATE1 ---
History and Physical Update Update Date/Time: 03/06/23 12:51 History and Physical has been reviewed, including an updated exam of the patient. There are NO changes in the patient's condition. Risks, benefits, and alternatives have been discussed and questions answered. Patient agrees to proceed with procedure.
--- NOTE | 2023-03-06 13:00 | WPDANESEPPF ---
Anes - Initial Pre Proc Eval Procedure: Operation Date: 03/06/23 11:30 Proposed Procedures p Laparoscopic Hiatal Hernia Repair with Jose Fundoplication Davinci Assisted - Antoine Escobar DO Date/Time: 03/06/23 13:00 Surgeon: Antoine Escobar DO Pre Op Diagnosis: gerd, hiatal hernia, epigastric pain Patient Data Age: 52 Gender: F Height: 1.63 m Weight: 95.6 kg Last Vital Signs Temp 98.4 F 03/06/23 09:30 Pulse 77 03/06/23 09:30 Resp 16 03/06/23 09:30 BP 129/79 03/06/23 09:30 Pulse Ox 99 03/06/23 09:30 O2 Del Method Room Air 03/06/23 09:30 Allergies Allergy/AdvReac Type Severity Reaction Status Date / Time penicillin G Allergy Intermediate Rash Verified 03/06/23 10:36 Penicillins Allergy Intermediate Rash Verified 03/06/23 10:36 Home Medications Medication Instructions Recorded Confirmed Type onabotulinumtoxinA 200 unit 200 unit IM MONTHLY 11/03/20 02/27/23 History solution for injection (Botox) sumatriptan succinate 100 mg 100 mg PO ONCE PRN Migraine 11/03/20 02/27/23 History tablet (Imitrex) Headache atogepant 60 mg tablet (Qulipta) 60 mg PO DAILY 09/21/22 02/27/23 History omeprazole 20 mg tablet,delayed 20 mg PO BID #180 tabs 09/21/22 02/27/23 Rx release sucralfate 1 gram tablet 1 g PO BID #60 tabs 12/09/22 02/27/23 Rx Patient hx anesthesia problems: none Family hx anesthesia problems: none Results Review: All pre-operative results and documents have been reviewed as part of the pre-operative evaluation. [facility] Past Medical History Medical History GERD (gastroesophageal reflux disease) Hiatal hernia Migraine headache Obesity Surgical History Surgical History History of hysterectomy Hx laparoscopic cholecystectomy Hx of tonsillectomy S/P placement of nerve stimulator implanted 2015 and removed 2016 Family History Family History Father Patient's father is in good health Diabetes mellitus Hypertension Family history of malignant neoplasm Mother Family history of malignant neoplasm of breast in first degree relative Social History Social History Smoking status: Never smoker Second hand tobacco smoke exposure: No Alcohol intake: current Alcohol use details: rarely Substance use: never Substance use type: does not use Lack of Transportation: No Lack of Food: Never True Current Housing: I Have Housing Concerned About Future Housing: No Difficulty Paying Gas/Electric Bills: No Difficulty Paying for Meds: No Currently Unemployed: No Education: Master's Degree or Higher Difficulty w/ Childcare or Family Care: No Living arrangements: with family Spiritual care concerns: No Anes - Eval Final PreProcedure Day of Procedure 03/06/23 13:00 Patient weight: obese Heart: regular rate and rhythm Lungs: clear to auscultation Airway: Mallampati scale class II Neurological: alert and oriented Last oral intake: >/= 8 hours ASA classification: II Emergent: no Anesthetic plan: proceed Anesthesia type and monitoring: general ETT and standard monitoring Results Review: All pre-operative results and documents have been reviewed as part of the pre-operative evaluation. Informed Consent: The patient's anesthetic plan and its attendant risks and benefits were discussed with the patient/family/POA. Questions were solicited and answers provided to the satisfaction of the patient/family/POA.
[2023-03-06] MEDS: ceFAZolin 2 GM/D5W 50 ML 2 GM/50 ML BAG IVPB (13:28)
[2023-03-06] MEDS: BUPIVACAINE/EPINEPHRINE 0.5% 50 ML VIAL 42 ML INFILTRATE (14:46)
--- NOTE | 2023-03-06 16:07 | W.PM.PROC2 ---
Procedure Note - Detailed Date of Procedure 03/06/23 Pre-op Diagnosis GERD, hiatal hernia, epigastric pain Post-op Diagnosis Same Procedure Performed Robotic assisted laparoscopic paraesophageal hernia repair, 270 degree fundoplication Surgeon Antoine Escobar, DO Anesthesia General and Local (0.5% bupivicaine with epi) Indications This is a 52-year-old woman who presented with epigastric pain and GERD symptoms. She has had a CT of her abdomen which showed evidence of a moderate-sized hiatal hernia. She then also had further workup including a Gastrografin upper GI, esophageal manometry, and pH study. She had also undergone EGD by Dr. Giron in September of 2022. After reviewing all of the workup, she was a reasonable candidate for hiatal hernia repair. Discussions were made with the patient about treatment options and decision was made to proceed with robotic assisted laparoscopic paraesophageal hernia repair with fundoplication. Findings Laparoscopic paraesophageal hernia repair with 270 degree fundoplication was performed. The patient was found to have a moderate-sized hiatal hernia with stomach protruding up into the hernia defect. The hernia sac and stomach were reduced from within mediastinum and the hernia sac was excised. I ensured that there was adequate mobilization the esophagus to the abdomen repaired the hiatal hernia and performed a 270? fundoplication. No other abnormalities were noted. Description of Procedure Procedure as well as risks, benefits, and alternatives were discussed with the patient. Written consent was obtained and placed in chart prior to procedure. Patient was brought back to surgical suite. She was placed supine on operating table. Time-out was done to confirm patient and procedure. She was then intubated by the anesthesia department. Her abdomen was prepped and draped in sterile fashion using chlorhexidine prep. 0.5% bupivacaine with epinephrine was infiltrated locally around each area for port placement. An 8 mm incision was made in the left upper quadrant 2 cm inferior to the costal margin in the mid clavicular line. A 5 mm Optiview trocar was then advanced through the abdominal layers under direct visualization. Once inside the abdominal cavity, carbon dioxide insufflation was used to create a pneumoperitoneum. The camera was inserted in the abdomen was inspected. No immediate abnormalities were identified. Another 8 mm camera port was placed about 15 cm inferior to the xiphoid just to the left of midline under direct visualization. An 8 mm port was placed in the anterior axillary line on the left upper quadrant at about the same transverse plane as the camera port. An 8 mm port was placed in the right upper quadrant and another 8 mm AirSeal assist port was placed in right lower quadrant just to the right of the umbilicus. A 5 mm incision was made in the subxiphoid region and the Yoel liver retractor was inserted through this incision into the abdominal cavity to lift up the left lobe of the liver. This was secured in place to the bed of the table. The patient was then placed in 30? reverse Trendelenburg. The robotic arms were secured to the ports and the robotic camera and instruments were inserted. A force bipolar grasper was placed in the right upper quadrant port. The vessel sealer was placed in the midclavicular left upper quadrant port and a Cadiere grasper was placed in the anterior axillary line left upper quadrant port. I then moved over to the robotic console took control of the camera and instruments. A careful thorough exam was performed throughout the abdomen. The stomach was then reduced from within the hiatal hernia. The gastrohepatic ligament was taken down medially using the vessel sealer to identify the right shan. Peritoneum along the medial side of the right shan was then divided using the vessel sealer. This allowed me to enter into the avascular plane and carefully dissect
[2023-03-06] MEDS: fentaNYL CITRATE INJ (*CRX) 100 MCG/2 ML VIAL 25 MCG IV PUSH ×8 (16:30→16:55)
[2023-03-06] MEDS: HYDROmorphone HCL INJ (*CRX) 1 MG/ML SYR 0.5 MG IV PUSH ×2 (17:10→17:15)
--- NOTE | 2023-03-06 17:58 | ADMGEN ---
This patient, Cristina Cornejo, was admitted to Medical Room 349-01. Patient/family oriented to hospital policies and general routines including ID bracelet, bed and alarms, visiting hours, pain management, procedures, bathroom and other care routines, personal items, smoking policy, room service/diet, and visiting hours. Information on how to activate the Rapid Response Team has been discussed. Patient/Family are encouraged to report perceived risks to care and to ask questions if they do not understand what they are told or what they should do.
[2023-03-06] MEDS: MORPHINE SULFATE (*CRX) 2 MG/ML INJ IV PUSH ×2 (20:17→23:28)
[2023-03-07] MEDS: MORPHINE SULFATE (*CRX) 2 MG/ML INJ IV PUSH ×6 (02:59→18:49)
[2023-03-07 04:41] VITALS: BP 119/74; PULSE 88; RESP 16; TEMP 36.2; O2SAT 94
[2023-03-07 06:01] LABS: Hematocrit 41.2 % (37.0-47.0); Hemoglobin 13.2 g/dL (12.0-15.0); Mean Corpuscular Hemoglobin 28.1 pg (26-34); Mean Corpuscular Volume 87.8 fl (80-100); Mean Platelet Volume 10.9 fl (7.4-10.4); Platelet Count Result 227 k/mm3 (150-375); Red Blood Count 4.69 M/mm3 (4.2-5.4); Red Cell Distribution Width 12.9 % (11.5-14.5); White Blood Count 9.1 K/mm3 (4.5-10.0)
[2023-03-07 06:15] LABS: Anion Gap 7 mmol/L (8-16); Blood Urea Nitrogen 12 mg/dL (7-17); Calcium 8.4 mg/dL (8.4-10.2); Carbon Dioxide 24 mmol/L (22-30); Chloride 101 mmol/L (98-107); Estimated CRCL calculation 92 ml/min; Estimated Glomerular Filt Rate > 60; Glucose 104 mg/dL (65-110); Sodium 132 mmol/L (137-145)
[2023-03-07] MEDS: ONDANSETRON INJ 4 MG/2 ML VIAL IV PUSH ×2 (08:13→20:01)
[2023-03-07] MEDS: ENOXAPARIN 40 MG/0.4 ML SYRINGE SUB-Q (08:14)
[2023-03-07] MEDS: PANTOPRAZOLE 40 MG TABLET PO (08:14)
--- NOTE | 2023-03-07 08:50 | PC.NURSE ---
Pt encouraged to get up and walk around, sit up in the chair and eat some breakfast. Pt refused dinner last night. Pt educated on the importance of diet for healing and strength.
--- NOTE | 2023-03-07 10:36 | PM.PNGS ---
Progress Note: A&P Assessment and Plan (1) Hiatal hernia: Code(s): K44.9 - Diaphragmatic hernia without obstruction or gangrene Status: Acute Assessment and Plan: Doing well. Will work on increasing activity today. Advance to full liquids. Possibly home tomorrow. (2) Gastro-esophageal reflux disease without esophagitis: Code(s): K21.9 - Gastro-esophageal reflux disease without esophagitis Status: Acute Subjective Subjective Date/Time Seen: 03/07/23 10:36 Interval history: Patient had a lot of gas pain last night. Doing better today. Tolerating clears. No dysphagia. Exam GI: Inspection: incision (intact with glue) GI Palp: Yes Soft to palpation and Yes Tenderness to palpation present (GI) (incisional) Objective Data Vital Signs Vital Signs: Vital Signs - 24 hr 03/06/23 16:06 03/06/23 16:15 03/06/23 16:30 Temperature 36.6 C Pulse Rate 87 89 92 Respiratory Rate 14 13 14 Blood Pressure 130/67 136/84 148/87 H Pulse Oximetry 99 100 100 Oxygen Delivery Simple Face Mask Simple Face Mask Room Air Oxygen Flow Rate 10 10 03/06/23 16:45 03/06/23 17:00 03/06/23 17:15 Temperature Pulse Rate 88 82 78 Respiratory Rate 12 12 12 Blood Pressure 139/89 141/85 H 135/81 Pulse Oximetry 99 99 99 Oxygen Delivery Room Air Room Air Room Air Oxygen Flow Rate 03/06/23 17:40 03/06/23 17:55 03/06/23 18:25 Temperature 35.4 C L 35.6 C L 35.6 C L Pulse Rate 80 84 83 Respiratory Rate 14 14 14 Blood Pressure 133/79 129/77 128/76 Pulse Oximetry 98 97 97 Oxygen Delivery Oxygen Flow Rate 03/06/23 18:17 03/06/23 19:25 03/06/23 20:00 Temperature 36.1 C L Pulse Rate 80 Respiratory Rate 16 Blood Pressure 137/84 Pulse Oximetry 97 Oxygen Delivery Room Air Room Air Oxygen Flow Rate 03/07/23 04:41 03/07/23 08:00 Temperature 36.2 C L Pulse Rate 88 Respiratory Rate 16 Blood Pressure 119/74 Pulse Oximetry 94 Oxygen Delivery Room Air Oxygen Flow Rate Intake/Output Intake/Output: Intake & Output 03/04/23 03/05/23 03/06/23/11/23 23:59 23:59 23:59 23:59 Intake Total 50 240 Balance 50 240 Meds/Results Medications: Active Medications Generic Name Dose Route Start Last Admin Trade Name Freq PRN Reason Stop Dose Admin Acetaminophen 650 mg 03/06/23 17:23 Acetaminophen 325 Mg Tablet PO Q6H PRN Mild Pain (1-3) or Fever Hydrocodone Bitart/Acetaminophen 7.5 mg 03/06/23 17:23 Acetaminophen/Hydrocodone Elixir (*Crx) 7.5 Mg/15 Ml Udc PO Q4H PRN Pain Rated 4-6 Enoxaparin Sodium 40 mg 03/07/23 09:00 03/07/23 08:14 Enoxaparin 40 Mg/0.4 Ml Syringe SUB-Q 40 mg DAILY SANDRITA Administration Miscellaneous Information 0 each 03/06/23 00:01 03/07/23 03:40 Qulipta = Nonformulary. Can Pt Use From Home? XX 04/05/23 00:00 Not Given [facility] Morphine Sulfate 2 mg 03/06/23 17:23 03/07/23 08:13 Morphine Sulfate (*Crx) 2 Mg/Ml Inj IV PUSH 2 mg Q2H PRN Administration Pain Rated 4-6 Morphine Sulfate 4 mg 03/06/23 17:23 Morphine Sulfate (*Crx) 4 Mg/Ml Inj IV PUSH Q2H PRN Pain Rated 7-10 Non-Formulary Medication 60 mg 03/07/23 09:00 Atogepant [Qulipta] PO 04/06/23 08:59 DAILY [facility] Ondansetron HCl 4 mg 03/06/23 17:23 03/07/23 08:13 Ondansetron Inj 4 Mg/2 Ml Vial IV PUSH 4 mg Q4H PRN Administration Nausea And Vomiting Pantoprazole Sodium 40 mg 03/07/23 09:00 03/07/23 08:14 Pantoprazole 40 Mg Tablet PO 40 mg QAM SANDRITA Administration Sumatriptan Succinate 100 mg 03/06/23 17:23 Sumatriptan Succinate 25 Mg Tablet PO ONCE PRN Migraine Headache Labs Labs: Laboratory Results - last 24 hr 03/07/23 05:48 WBC 9.1 RBC 4.69 Hgb 13.2 Hct 41.2 MCV 87.8 MCH 28.1 MCHC 32.0 RDW 12.9 Plt Count 227 MPV 10.9 H Sodium 132 L Potassium 4.0 Chloride 101 Carbon Dioxide 24 Anion Gap 7 L BUN 12 Creat
[2023-03-07 14:09] VITALS: BP 129/69; PULSE 85; RESP 16; TEMP 36.8; O2SAT 96
[2023-03-07] MEDS: MORPHINE SULFATE (*CRX) 4 MG/ML INJ IV PUSH (21:04)
[2023-03-07 21:11] VITALS: BP 162/89; PULSE 96; RESP 14; TEMP 37.3; O2SAT 93
[2023-03-08] MEDS: MORPHINE SULFATE (*CRX) 4 MG/ML INJ IV PUSH ×2 (00:24→05:14)
[2023-03-08] MEDS: ONDANSETRON INJ 4 MG/2 ML VIAL IV PUSH ×2 (00:24→05:14)
[2023-03-08 05:24] VITALS: BP 150/89; PULSE 86; RESP 14; TEMP 37; O2SAT 94
[2023-03-08] MEDS: PANTOPRAZOLE 40 MG TABLET PO (08:38)
[2023-03-08] MEDS: ENOXAPARIN 40 MG/0.4 ML SYRINGE SUB-Q (08:38)
--- NOTE | 2023-03-08 13:44 | PM.DS ---
DS: Admitting Diagnosis Discharge Date 03/08/23 Admitting Diagnosis GERD without esophagitis Hiatal hernia Epigastric pain DS: Discharge Diagnosis Discharge Diagnosis (1) Hiatal hernia: Code(s): K44.9 - Diaphragmatic hernia without obstruction or gangrene Status: Acute (2) Gastro-esophageal reflux disease without esophagitis: Code(s): K21.9 - Gastro-esophageal reflux disease without esophagitis Status: Acute (3) Epigastric pain: Code(s): R10.13 - Epigastric pain Status: Acute DS: Summary Hospital Course Reason for hospitalization: This is a 52-year-old woman who presented to our service as an outpatient with epigastric pain and GERD symptoms.? She has had a CT of her abdomen which showed evidence of a moderate-sized hiatal hernia.? She then also had further workup including a Gastrografin upper GI, esophageal manometry, and pH study.? She had also undergone EGD by Dr. Giron in September of 2022. Discussions were made with the patient about treatment options and decision was made to proceed with robotic assisted laparoscopic paraesophageal hernia repair with fundoplication. Hospital Course: She was admitted post-operatively. She underwent robotic assisted laparoscopic paraesophageal hernia repair, [address] Escobar on 03/06/2023. Her surgery appeared to be straightforward. She was started on a clear liquid diet after surgery. Activity was slowly advanced. She began ambulating in the room and halls. Postop day 1 she was advanced to a full liquid diet. She has tolerated this well. She is not having any regurgitation or dysphagia. Pain has been well controlled. She had some gas pains initially the first night, but this was much better by postop day 2. She appears stable for discharge today. Will continue a full liquid diet on discharge. Status at Discharge Functional status at discharge: independent ambulation Overall status at discharge: patient is progressing back to baseline Time Spent with Patient Time attestation: Total time spent providing and/or coordinating discharge services: Exam Const: General: comfortable and no acute distress Orientation/consciousness: patient oriented x3 Resp: Effort & Inspection: normal respiratory effort Auscultation: clear to auscultation bilaterally Cardio: Rate: regular rate Rhythm: regular rhythm GI: Inspection: non-distended and incision (incisions dry and intact) GI Palp: Yes Soft to palpation and Yes Tenderness to palpation present (GI) (incisional) Auscultation: normal bowel sounds Neuro: General: moves all extremities and no focal motor deficits Extrem: General: no calf tenderness and no edema Psych: Mental Status: mental status grossly normal Insight: Good insight present (Psych) DS: Data Procedures/Treatments: Procedures Operation Date: 03/06/23 11:30 Actual Procedure Side Surgeon p Laparoscopic Hiatal Hernia Repair with Jose Fundoplication Davinci Assisted Antoine Escobar, DO Discharge Plan Discharge Attending physician on discharge: Andie Guallpa Discharging Clinician: Anuradha Head Anticipated Discharge Date/Time: 03/08/23 14:04 Patient Disposition: Home, Self-Care Activity: may shower and other - see discharge instructions Diet: other - see discharge instructions Wound Care Instructions: incision open to air Discharge Instructions: DISCHARGE INSTRUCTIONS FOR SURGERY 1. May shower in 24 hours, no soaking in bath x 2weeks. 2. Call office for: Wound increasingly painful or bleeding Vomiting Fever of greater than 101 degrees 3. If no bowel movement for three days, take 1 oz. (30 ml) Milk of Magnesia or MiraLax 17g 1 to 2 times daily. 4. No heavy lifting > 10-15 pounds x 2 weeks for laparoscopic cholecystectomy or appendectomy. 5. No driving for 3 days or while taking narcotic pain medications. 6. Ice to surgical site for 48 hours (30 min on
[2023-03-08] MEDS: Acetaminophen/HYDROcodone ELIXIR (*CRX) 7.5 MG/15 ML UDC PO (14:11)
== END 2023-03-08 16:47 | disposition home or self-care (01) ==
LOC: ANHSURGERY 12:52 → ANH3MED 12:52
PROVIDERS: Admitting Provider Surgery; PCP Internal Medicine; Visit Provider Surgery
PROC: 0DV44ZZ Restriction of Esophagogastric Junction, Percutaneous Endoscopic Approach (ICD-10-PCS; CPT 43280; principal; 2023-03-06 11:30)
DX: K44.9 Diaphragmatic hernia without obstruction or gangrene (principal); K21.9 Gastro-esophageal reflux disease without esophagitis; K29.70 Gastritis, unspecified, without bleeding; G43.909 Migraine, unspecified, not intractable, without status migrainosus; E66.9 Obesity, unspecified; Z68.36 Body mass index [BMI] 36.0-36.9, adult; F10.90 Alcohol use, unspecified, uncomplicated
CPT/HCPCS: 43281; S2900; 36415; 80048; 85027; 86850; 86900; 86901; 93005; A9270; G0378; J0330; J0690; J1100; J1170; J1650; J1885; J2250; J2270; J2371; J2405; J2704; J3010; J7120

== ENCOUNTER 2023-07-17 11:54 | Emergency (ER) | payer OTHER, SELFPAY ==
[2023-07-17] VITALS (11 sets, daily range): BP systolic 115–138; BP diastolic 80–102; PULSE 80–97; RESP 12–19; TEMP 36.7–36.9; O2SAT 96–100
--- NOTE | ~2023-07-17 | XR_ITS ---
EXAMINATION: XR chest 2V DATE: 07/17/2023 13:07 INDICATION: Palpitations with bilateral arm and hand tingling. TECHNIQUE: PA and lateral views of the chest were obtained. COMPARISON: Chest radiograph dated 06/19/2016 FINDINGS: The lungs are clear with no focal airspace opacities, pulmonary edema, pleural effusion or pneumothor ax. The cardiomediastinal silhouette is normal. Cholecystectomy clips in the right upper quadrant. IMPRESSION: 1. No acute cardiopulmonary disease. Reviewed, dictated and finalized at location A. 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
--- NOTE | 2023-07-17 11:56 | ECG_ITS ---
Measurements Intervals [place] Rate: 170 P: VT: 0 QRS: 3 QRSD: 83 T: 37 QT: 272 QTc: 458 Interpretive Statements SUPRAVENTRICULAR TACHYCARDIA NONSPECIFIC ST & T-WAVE ABNORMALITY ABNORMAL RHYTHM ECG COMPARED TO ECG 02/26/2023 11:20:07 SUPRAVENTRICULAR TACHYCARDIA NOW PRESENT Electronically Signed On 07-17-2023 15:46:59 SEWAGE DISPOSAL ENGINEER by Tammy Saravia M.D.
[2023-07-17 13:08] LABS: Basophils Percent Auto 0.7 % (0.2-1.2); Eosinophils Absolute Auto 0.3 K/mm3 (0-0.3); Eosinophils Percent Auto 4.8 % (0-4.4); Hematocrit 44.3 % (37.0-47.0); Hemoglobin 14.3 g/dL (12.0-15.0); Immature Granulocyte Absolute 0.02 K/mm3 (0.00-0.031); Immature Granulocyte Percent A 0.3 % (0-0.5); Lymphocytes Absolute Auto 1.59 K/mm3 (0.9-3.2); Lymphocytes Percent Auto 27.1 % (18.3-44.2); Mean Corpuscular HGB Conc 32.3 g/dl (32-36); Mean Corpuscular Hemoglobin 28.3 pg (26-34); Mean Corpuscular Volume 87.7 fl (80-100); Mean Platelet Volume 10.8 fl (7.4-10.4); Monocytes Absolute Auto 0.5 K/mm3 (0.1-0.6); Monocytes Percent Auto 8.2 % (2.6-8.5); Neutrophils Absolute Auto 3.5 K/mm3 (1.3-6.7); Neutrophils Percent Auto 58.9 % (45.5-73.1); Platelet Count Result 246 k/mm3 (150-375); Red Blood Count 5.05 M/mm3 (4.2-5.4); Red Cell Distribution Width 13.6 % (11.5-14.5); White Blood Count 5.9 K/mm3 (4.5-10.0)
[2023-07-17 13:18] LABS: INR 0.9; Prothrombin Time 12.4 Seconds (11.1-14.7)
[2023-07-17 13:19] LABS: Partial Thromboplastin Time 25.3 SECONDS (22.3-36.8)
[2023-07-17 13:51] LABS: Alanine Aminotransferase 20 U/L (6-35); Albumin Level 4.5 g/dL (3.5-5.1); Alkaline Phosphatase 67 U/L (38-126); Anion Gap 8 mmol/L (8-16); Aspartate Amino Transferase 28 U/L (14-36); Bilirubin,Total 0.4 mg/dL (0.2-1.3); Blood Urea Nitrogen 16 mg/dL (7-17); Calcium 9.9 mg/dL (8.4-10.2); Carbon Dioxide 26 mmol/L (22-30); Chloride 105 mmol/L (98-107); Estimated CRCL calculation 107 ml/min; Estimated Glomerular Filt Rate > 60; Glucose 110 mg/dL (65-110); Lipase 110 U/L (23-300); Potassium 3.9 mmol/L (3.4-5.0); Sodium 139 mmol/L (137-145)
[2023-07-17 14:03] LABS: Troponin I < 0.012 ng/mL (0.000-0.034)
--- NOTE | 2023-07-17 14:32 | ED.CHESTPAIN ---
HPI - Chest Pain General Chief Complaint: Chest Pain Stated Complaint: heart palpitations x 1 week Time Seen by Provider: 07/17/23 13:43 History of Present Illness HPI narrative: 52-year-old otherwise healthy here with complaint of fall nonsteroidal palpitation while she was at work. Patient states that she landed soon after she started having palpitation and some chest discomfort. She denied any shortness of breath. Patient stated this symptom lasted about 30 minute for the time she got to the ER she started feeling better. Related Data Home Medications Medication Instructions Recorded Confirmed onabotulinumtoxinA 200 unit 200 unit IM MONTHLY 11/03/20 04/16/23 solution for injection (Botox) sumatriptan succinate 100 mg 100 mg PO ONCE PRN Migraine 11/03/20 04/16/23 tablet (Imitrex) Headache atogepant 60 mg tablet (Qulipta) 60 mg PO DAILY 09/21/22 04/16/23 Allergies Allergy/AdvReac Type Severity Reaction Status Date / Time penicillin G Allergy Intermediate Rash Verified 04/13/23 08:41 Penicillins Allergy Intermediate Rash Verified 04/13/23 08:41 Review of Systems Review of Systems: All systems reviewed & are unremarkable except as noted in HPI and below Constitutional: Constitutional: Reports no additional constitutional complaints Eyes: Eyes: Reports no additional eye complaints ENT: Reports system reviewed and no additional complaints, except as documented Cardiovascular: Cardiovascular: Reports as per HPI Respiratory: Respiratory: Reports no additional respiratory complaints Gastrointestinal: Gastrointestinal: Reports no additional gastrointestinal complaints Musculoskeletal: Musculoskeletal: Reports no additional musculoskeletal complaints Neurologic: Reports system reviewed and no additional complaints, except as documented Psychiatric: Psychiatric: Reports no additional psychiatric complaints Hematologic/Lymphatic: Hematologic/Lymphatic: Reports no additional hematologic/lymphatic complaints [facility] Past Medical History Medical History GERD (gastroesophageal reflux disease) Hiatal hernia Migraine headache Obesity Surgical History Surgical History History of hysterectomy Hx laparoscopic cholecystectomy Hx of hernia repair Robotic assisted laparoscopic paraesophageal hernia repair, 270 degree fundoplication on 03/06/23 [facility] Hx of tonsillectomy S/P placement of nerve stimulator implanted 2015 and removed 2016 Family History Family History Father Patient's father is in good health Diabetes mellitus Hypertension Family history of malignant neoplasm Mother Family history of malignant neoplasm of breast in first degree relative Social History Social History Smoking status: Never smoker Second hand tobacco smoke exposure: No Alcohol intake: current Alcohol use details: rarely Substance use: never Substance use type: does not use Lack of Transportation: No Lack of Food: Never True Current Housing: I Have Housing Concerned About Future Housing: No Difficulty Paying Gas/Electric Bills: No Difficulty Paying for Meds: No Currently Unemployed: No Education: Master's Degree or Higher Difficulty w/ Childcare or Family Care: No Living arrangements: with family Spiritual care concerns: No Exam Narrative: GENERAL: Well-appearing, well-nourished, and in no acute distress. HEAD: Normocephalic, atraumatic. EYES: PERRLA and EOMI. ENT: Nares clear, no rhinorrhea or epistaxis. NECK: Supple. CHEST: Clear to auscultation. No respiratory distress. HEART: Regular rate and rhythm. No murmur heard. Normal peripheral pulses. ABDOMEN: Soft, nontender, nondistended, normal active bowel sounds. EXTREMITIES: Normal range of motion. No edema. SKIN: Warm,
== END 2023-07-17 14:43 | disposition home or self-care (01) ==
PROVIDERS: Emergency Provider Family Medicine; PCP Internal Medicine
DX: I47.10 Supraventricular tachycardia, unspecified (principal)
CPT/HCPCS: 36415; 71046; 80053; 83690; 84484; 85025; 85610; 85730; 93005; 99284

== ENCOUNTER 2023-10-13 07:26 | Outpatient (CLI) | payer OTHER, SELFPAY ==
--- NOTE | ~2023-10-13 | MR_ITS ---
EXAMINATION: MR foot LT wo con DATE: 10/13/2023 08:35 INDICATION: Spontaneous rupture flexor tendons, left ankle. Left foot pain. TECHNIQUE: Magnetic resonance imaging (MRI) of the left foot was performed without intravenous contra st. COMPARISON: Left foot MRI 01/31/2019, radiographs 01/21/19 FINDINGS: The phalanges are excluded. Bone alignment is normal. No fracture. Joint spaces are normal. There is a skin marker lateral to base of fifth metatarsal. The deltoid ligament is normal. There ar e changes of prior mild sprain of the anterior talofibular ligament characterized by increased signal intensity. The other lateral ankle ligaments are normal. The medial and anterior ankle tendons are n ormal. Peroneus longus tendon is normal. There is moderate tendinopathy of peroneus brevis at its dis heraclio attachment. The Achilles tendon is normal. There is thickening of central band of the plantar fas sofy, consistent with fasciitis. There is an enthesophyte at the calcaneal attachment. IMPRESSION: 1. Moderate tendinopathy of peroneus brevis tendon at its distal attachment. 2. Plantar fasciitis. Reviewed, dictated and finalized at location A.
== END 2023-10-13 07:27 ==
PROVIDERS: PCP Podiatrist Foot & Ankle Surgery; Visit Provider Podiatrist Foot & Ankle Surgery
DX: M66.372 Spontaneous rupture of flexor tendons, left ankle and foot (principal); M76.72 Peroneal tendinitis, left leg; M72.2 Plantar fascial fibromatosis; S93.412A Sprain of calcaneofibular ligament of left ankle, initial encounter; M77.52 Other enthesopathy of left foot and ankle; X58.XXXA Exposure to other specified factors, initial encounter
CPT/HCPCS: 73718

== ENCOUNTER 2023-11-27 11:37 | Emergency (ER) | payer OTHER, SELFPAY ==
--- NOTE | 2023-11-27 11:40 | ED.URI ---
HPI - URI/Sore Throat General Chief Complaint: Upper Respiratory Infection Stated Complaint: Cold symptoms Time Seen by Provider: 11/27/23 11:40 Source: patient Mode of arrival: ambulatory Limitations: no limitations History of Present Illness HPI Narrative: Cristina is a 53-year-old female patient presenting to the clinic today with complaints of sinus congestion, cough, headache, and ear pain. She reports symptoms have been going on for about 14 days. Just got home from a 3 week trip from [place]. Is coughing up and blowing out green nasal drainage. No fever or chills. Has taken DayQuil/NyQuil and ibuprofen MD elicited complaint: sore throat and nasal congestion Related Data Home Medications Medication Instructions Recorded Confirmed onabotulinumtoxinA 200 unit 200 unit IM MONTHLY 11/03/20 11/27/23 solution for injection (Botox) sumatriptan succinate 100 mg 100 mg PO ONCE PRN Migraine 11/03/20 11/27/23 tablet (Imitrex) Headache atogepant 60 mg tablet (Qulipta) 60 mg PO DAILY 09/21/22 11/27/23 Allergies Allergy/AdvReac Type Severity Reaction Status Date / Time penicillin G Allergy Intermediate Rash Verified 07/26/23 13:25 Penicillins Allergy Intermediate Rash Verified 07/26/23 13:25 Review of Systems Review of Systems: Pertinent positives per HPI. Patient denies any fever, chills, rash, headache, visual changes, dizziness, cough, shortness of breath, chest pain, palpitations, nausea, vomiting, diarrhea, constipation, abdominal pain, or any urinary issues. [facility] Past Medical History Medical History GERD (gastroesophageal reflux disease) Hiatal hernia Migraine headache Obesity Paroxysmal supraventricular tachycardia Surgical History Surgical History History of hysterectomy Hx laparoscopic cholecystectomy Hx of hernia repair Robotic assisted laparoscopic paraesophageal hernia repair, 270 degree fundoplication on 03/06/23 [facility] Hx of tonsillectomy S/P placement of nerve stimulator implanted 2015 and removed 2016 Family History Family History Father Patient's father is in good health Diabetes mellitus Hypertension Family history of malignant neoplasm Mother Family history of malignant neoplasm of breast in first degree relative Social History Social History Smoking status: Never smoker Second hand tobacco smoke exposure: No Alcohol intake: current Alcohol use details: rarely Substance use: never Substance use type: does not use Lack of Transportation: No Lack of Food: Never True Current Housing: I Have Housing Concerned About Future Housing: No Difficulty Paying Gas/Electric Bills: No Difficulty Paying for Meds: No Currently Unemployed: No Education: Master's Degree or Higher Difficulty w/ Childcare or Family Care: No Living arrangements: with family Spiritual care concerns: No Comments At the time of my signature, I reviewed and agree with the nursing past medical, surgical, social, and family history. There is no relevant family history pertinent to the patient complaint. Exam Narrative: General: Well-developed, obese, in no apparent distress Head: Normocephalic, atraumatic Eyes: Pupils equally round and reactive to light bilaterally, EOM intact, sclera and conjunctive clear, no discharge, lids normal Ears: TMs intact and clear, ear canals clear, no drainage, grossly hearing normal. Nose: Nares patent, green nasal discharge, moderate inflammation, maxillary and frontal sinus tenderness. Mouth: Oral pharynx without lesions or masses, good dentition, MMM. Postnasal drip Neck: Supple, trachea midline, no enlargement of anterior or posterior cervical nodes, no thyroid masses or goiter palpable. Cardio: Regular rate a
[2023-11-27 11:46] VITALS: BP 125/80; PULSE 83; RESP 18; TEMP 36.9; O2SAT 99
[2023-11-27 11:49] VITALS: BP 125/80; PULSE 83; RESP 18; TEMP 36.9; O2SAT 99
== END 2023-11-27 11:55 | disposition home or self-care (01) ==
PROVIDERS: Emergency Provider Nurse Practitioner Family
DX: J01.90 Acute sinusitis, unspecified (principal); K21.9 Gastro-esophageal reflux disease without esophagitis; E66.9 Obesity, unspecified; Z68.37 Body mass index [BMI] 37.0-37.9, adult
CPT/HCPCS: 99213; G0463

== ENCOUNTER 2024-01-05 08:44 | Outpatient (CLI) | payer OTHER, SELFPAY ==
--- NOTE | ~2024-01-05 | US_ITS ---
EXAMINATION: US thyroid DATE: 01/05/2024 09:18 INDICATION: Thyroid nodule. TECHNIQUE: Multiple ultrasound images of the thyroid were obtained. COMPARISON: None. FINDINGS: The right thyroid lobe measures 4.7 x 1.6 x 1.5 cm. The left thyroid lobe measures 3.8 x 1.0 x 1.2 c m. There is normal echotexture and echogenicity throughout the thyroid gland. No discrete nodules id entified. Normal vascular flow is present. IMPRESSION: 1. Normal thyroid. Reviewed, dictated and finalized at location A. IMPRESSION: 1. Normal thyroid.
== END 2024-01-05 08:45 ==
LOC: MICIMG 08:44
PROVIDERS: PCP Internal Medicine; Visit Provider Internal Medicine
DX: E04.1 Nontoxic single thyroid nodule (principal)
CPT/HCPCS: 76536

== ENCOUNTER 2024-04-18 08:28 | Emergency (ER) | payer OTHER, SELFPAY ==
[2024-04-18 09:00] VITALS: BP 112/76; PULSE 74; RESP 16; TEMP 36.6; O2SAT 99
--- NOTE | 2024-04-18 09:25 | ED_ITS ---
HPI - General Ped General Chief complaint: Unspecified Stated complaint: outlet electrical shock Time Seen by Provider: 04/18/24 09:26 Source: patient, family, RN notes reviewed and old records reviewed Mode of arrival: ambulatory Limitations: no limitations Nursing Documentation: reviewed/agree History of Present Illness HPI narrative: 53 year [facility] complaints of Related Data Home Medications Medication Instructions Recorded Confirmed onabotulinumtoxinA 200 unit 200 unit IM MONTHLY 11/03/20 12/14/23 solution for injection (Botox) sumatriptan succinate 100 mg 100 mg PO ONCE PRN Migraine 11/03/20 12/14/23 tablet (Imitrex) Headache atogepant 60 mg tablet (Qulipta) 60 mg PO DAILY 09/21/22 12/14/23 Allergies Allergy/AdvReac Type Severity Reaction Status Date / Time penicillin G Allergy Intermediate Rash Verified 12/14/23 07:38 Penicillins Allergy Intermediate Rash Verified 12/14/23 07:38 Pediatric Review of Systems All systems ED: reviewed and negative except as stated Constitutional: Denies fever or chills ENT: Denies ear pain Cardiovascular: Denies chest pain Respiratory: Denies cough Gastrointestinal: Denies abdominal pain Genitourinary: Denies dysuria Musculoskeletal: Denies back pain Integumentary: Denies rash Neurological: Denies headache Psychiatric: Denies change in energy level or fussiness [facility] Past Medical History Medical History GERD (gastroesophageal reflux disease) Hiatal hernia Migraine headache Obesity Paroxysmal supraventricular tachycardia Surgical History Surgical History History of hysterectomy Hx laparoscopic cholecystectomy Hx of hernia repair Robotic assisted laparoscopic paraesophageal hernia repair, 270 degree fundoplication on 03/06/23 [facility] Hx of tonsillectomy S/P placement of nerve stimulator implanted 2015 and removed 2016 Family History Family History Father Patient's father is in good health Diabetes mellitus Hypertension Family history of malignant neoplasm Mother Family history of malignant neoplasm of breast in first degree relative Social History Social History Smoking status: Never smoker Second hand tobacco smoke exposure: No Alcohol intake: current Alcohol use details: rarely Substance use: never Substance use type: does not use Lack of Transportation: No Lack of Food: Never True Current Housing: I Have Housing Concerned About Future Housing: No Difficulty Paying Gas/Electric Bills: No Difficulty Paying for Meds: No Currently Unemployed: No Education: Master's Degree or Higher Difficulty w/ Childcare or Family Care: No Living arrangements: with family Spiritual care concerns: No Comments At the time of my signature, I reviewed and agree with the nursing past medical, surgical, social, and family history. There is no relevant family history pertinent to the patient complaint. Pediatric Exam General: Limitations: no limitations General appearance: well-appearing, well-hydrated, active and well-nourished Head: Head exam: normocephalic and atraumatic Eye: Eye exam: Present normal appearance and PERRL ENT: ENT exam: normal exam, normal oropharynx, mucous membranes moist and normal external ear exam Expanded ENT Exam: External ear exam: Present normal external inspection Neck: Neck exam: Present normal inspection, full ROM and trachea midline; Absent tenderness, meningismus or lymphadenopathy Chest: Chest inspection: Present normal inspection and symmetric chest wall rise Respiratory: Respiratory exam: Present normal lung sounds bilaterally; Absent respiratory distress, wheezes, stridor or accessory muscle use Cardiovascular: Cardiovascular exam: Present regular rate and normal rhythm Abdominal Exam: Abdominal exam: Present soft; Absent tenderness Extremities Exam: Extremities exam: Present normal inspection, full ROM and normal capillary refill; Absent tenderness Back Exam: Back exam: Present normal inspection and full ROM; Absent tenderness Neurological Exam: Neurological exam: Present alert, oriented X3 and normal gait Skin: Skin exam: Present warm, dry, intact and normal color; Absent rash Course Course Emergency Course: Discharge instructions reviewed with parent/patient, as well as provided in writing per nursing staff. The instructions also include specific and strict return/GO TO THE ER as well as f/u information. All questions have been answered, and the parent/patient deny any further questions with discharge and discharge plan. Some parts of this dictation were generated by voice recognition software and may contain typographical and/or grammatical inaccuracies. Level of Care: Express Care Visit Vital Signs Vital signs: Vital Signs Temperature 97.9 F 04/18/24 09:00 Pulse Rate 74 04/18/24 09:00 Respiratory Rate 16 04/18/24 09:00 Blood Pressure 112/76 04/18/24 09:00 Pulse Oximetry 99 04/18/24 09:00 Oxygen Delivery Room Air 04/18/24 09:00 Temperature 97.9 F 04/18/24 09:00 Pulse Rate 74 04/18/24 09:00 Respiratory Rate 16 04/18/24 09:00 Blood Pressure 112/76 04/18/24 09:00 Pulse Oximetry 99 04/18/24 09:00 Oxygen Delivery Room Air 04/18/24 09:00 reviewed Medical Decision Making MDM Narrative Medical decision making narrative: patient is sitting comfortably on exam table. No acute distress noted. Nontoxic in appearance. Vitals are stable. In no acute distress Vital Signs Vital Signs: Vital Signs Temperature 97.9 F 04/18/24 09:00 Pulse Rate 74 04/18/24 09:00 Respiratory Rate 16 04/18/24 09:00 Blood Pressure 112/76 04/18/24 09:00 Pulse Oximetry 99 04/18/24 09:00 Oxygen Delivery Room Air 04/18/24 09:00 Temperature 97.9 F 04/18/24 09:00 Pulse Rate 74 04/18/24 09:00 Respiratory Rate 16 04/18/24 09:00 Blood Pressure 112/76 04/18/24 09:00 Pulse Oximetry 99 04/18/24 09:00 Oxygen Delivery Room Air 04/18/24 09:00 reviewed Lab Data Lab results reviewed: Yes I reviewed the patient's lab results. Labs: reviewed Critical Care Time Critical Care Time Critical Care Time: No Discharge Plan Discharge Prescriptions: No Action sumatriptan succinate [Imitrex] 100 mg tablet 100 mg PO ONCE PRN (Reason: Migraine Headache) Botox 200 unit recon soln 200 unit IM MONTHLY Rx Instructions: every 3 months Qulipta 60 mg tablet 60 mg PO DAILY Follow-up/Referrals: Deshawn Vargas, [Primary Care Provider] -
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
== END 2024-04-18 09:52 | disposition home or self-care (01) ==
PROVIDERS: Emergency Provider Nurse Practitioner; PCP Internal Medicine
DX: T75.4XXA Electrocution, initial encounter (principal); W86.8XXA Exposure to other electric current, initial encounter; K21.9 Gastro-esophageal reflux disease without esophagitis; E66.9 Obesity, unspecified; Z68.41 Body mass index [BMI] 40.0-44.9, adult
CPT/HCPCS: 99212; G0463

== ENCOUNTER 2024-12-04 17:12 | Emergency (ER) | payer OTHER, SELFPAY ==
--- OUTSIDE RECORDS SUMMARY | 2024-12-04 17:16 | XMS_ITS | Clinical Summary ---
Author Organization [facility] Address [address] [place] [address] Care Team Providers Care Skiver Counter Name Role Phone Tom Norris MD Primary Care Provider [phone] Allergies Active Allergy Reactions Criticality Noted Date Comments Penicillins Rash Reaction: Rash, Medications ibuprofen 200 mg tab/cap Take by mouth every 6 (six) hours as needed for pain Active SUMAtriptan (IMITREX) 100 mg tabletIndicatio ns:Chronic migraine without aura without status migrainosus, not intractable TAKE ONE TABLET BY MOUTH AT ONSET OF HEADACHE. MAY REPEAT DOSE IN TWO HOURS. MAX OF 2 TABLETS PER 24 HOURS AND 3 TIMES PER WEEK 9 tablet 3 08/31/19 24 Active Botox 100 unit recon soln Provider to inject up to 200 units IM into head and neck region every 84 days. Discard unused portion 2 each 3 03/25/20 24 Active SEMAGLUTIDE, WEIGHT LOSS, SUBQ Inject under the skin Active atogepant (Qulipta) 60 mg tabletIndicatio ns:Chronic migraine without aura without status migrainosus, not intractable TAKE 1 TABLET DAILY 90 tablet 11/20/19 25 Active atogepant (Qulipta) 60 mg tabletIndicatio ns:Chronic migraine without aura without status migrainosus, not intractable TAKE 1 TABLET DAILY 90 tablet 08/22/19 25 025 Discontinued Active Problems Problem Noted Date Diagnosed Date Dizziness and giddiness 02/22/2024 Assessment & Plan (02/22/2024 10:15 AM CDT): The patient is a 53-year-old female who suffered acute onset blurred vision, dizziness, and numbness and tingling approximately 3 weeks ago. The only instigating event was cervical spine extension. This was not consider traumatic at the time. The symptoms have been persistent. I recommended we obtain a brain MRI to rule out a posterior circulation infarct. I will order that today. Blurred vision, bilateral 02/22/2024 Assessment & Plan (02/22/2024 10:15 AM CDT): The patient is a 53-year-old female who suffered acute onset blurred vision, dizziness, and numbness and tingling approximately 3 weeks ago. The only instigating event was cervical spine extension. This was not consider traumatic at the time. The symptoms have been persistent. I recommended we obtain a brain MRI to rule out a posterior circulation infarct. I will order that today. Numbness and tingling 02/22/2024 Assessment & Plan (02/25/2024 4:39 PM CDT): The patient is a 53-year-old female who suffered acute onset blurred vision, dizziness, and numbness and tingling approximately 3 weeks ago. The only instigating event was cervical spine extension. This was not consider traumatic at the time. The symptoms have been persistent. I recommended we obtain a brain MRI to rule out a posterior circulation infarct. I will order that today. My total encounter time on 02/22/2024 was 45 minutes which was spent in the activities documented in the note. This includes time spent prior to the visit and after the visit in direct care of the patient. This time does not include time spent in any separately reportable services. 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 At this point the patient has done so well that she is not having any migraine headaches on a monthly basis. She is having no adverse effect from the Botox. We will plan on repeating it again in 3 months. Assessment & Plan (06/16/2022 10:55 AM TECHNICAL SALES SUPPORT MANAGER): Repeated Botox injection Assessment & Plan (03/01/2022 1:38 PM CDT): We repeated her Botox injection today. Assessment & Plan (12/07/2021 3:09 PM CDT): Repeated her Botox injections today. She is going to continue on Qulipta for prevention and sumatriptan for abortive purposes. She is going to have her Botox repeated in 3 months. Assessment & Plan (03/04/2018 10:31 AM CDT): Has had prominent response to botox - headaches decreased just a few days after injection. Has been having about 1 mild headache per week and has only had 2 migraines in 6 weeks. She is very happy with response. She is interested in increased left occipital injection at next botox visit. No issues/concerns, will proceed with botox as planned. RTC as scheduled for next botox and will consider increasing left vs bilateral occipital injections at that time. Assessment & Plan (12/13/2017 9:27 AM CDT): 47 year old woman with daily headaches of some kind and 12-16 migraines per month, consistent with chronic migraine. Patient reports the following headache risk factors: Analgesic overuse, poor hydration, lack of cardiovascular exercise, family history, weather changes, and various food triggers I reviewed all these factors at length with the patient and suggested treatment plan should include focused effort to reduce these lifestyle contributions to headache risk. I did encourage limiting caffeine to one cup daily as well. We also discussed headache prevention and abortive medications, including: Botox injections Aimovig Untried medications include: Zonisamide vs retrial topamax Higher dose propranolol Verapamil Effexor Cymbalta Candesartan Depakote Supplements Biofeedback Accupuncture At this time, patient would like to proceed with botox injections, which I agree is reasonable next step given her history of no longer responding to topamax, failing gabapentin, no response to propranolol, and no benefit from amitriptyline and having tried various other procedures in past. She will return in 1 month for first injection pending insurance approval. I suggested trying magnesium 400 mg BID and riboflavin 400 mg daily in meantime, along with lifestyle adjustment Call with changes/concerns. Provided with headache diary to document headaches in interim. Infection and inflammatory r eaction due to device, implant, and graft 07/05/2016 Mass of breast 08/17/2015 Resolved Problems Problem Noted Date Diagnosed Date Resolved Date Analgesic overuse headache 12/13/2017 1 Assessment & Plan (03/04/2018 10:30 AM CDT): Resolved - using much less since botox Encounters Date Type Department Care Team Description 10/28/2024 9:15 AM CDT Procedure visit [facility] [address] [place] [id number] Elan Iverson MD Chronic migraine without aura without status migrainosus, not intractable (Primary Dx) from Last 3 Months Immunizations Immunization Administration Dates Next Due Influenza, Trivalent, Preservative Free, Intramu scular 06/19/2016 Moderna SARS-CoV-2 Monovalent Vaccination (12+ Y RS) 08/07/2020,07/09/2020 Surgical History Surgery Date Site/Laterality Comments SC CHOLECYSTECTOMY Cholecystectomy - (Added by TW Conv) SC TONSILLECTOMY PRIMARY/SECONDARY <AGE 12 Tonsillectomy - (Added by TW Conv) TONSILLECTOMY 05/28/2002 - 05/27/2003 HYSTERECTOMY 05/28/2011 - 05/27/2012 CHOLECYSTECTOMY 05/28/1999 - 05/27/2000 OCCIPITAL NERVE STIMULATOR INSERTION 05/28/2016 - 05/27/2017 Removed 1 month later due to infection Medical History Medical History Date Comments Migraine Migraine Hiatal hernia GERD (gastroesophageal reflux disease) Family History Medical History Relation Name Comments COPD Mother Cancer Mother Migraines Mother Diabetes Other 1 Diabetes Mellit us - (Added by TW Conv) Hypertension Other 2 Hypertension - (Added by TW Conv) Cancer Other 3 Cancer - (Added by TW Conv) Cancer Sister Melanoma Sister Relation Name Status Comments Father Alive Mother Alive Other 1 Other 2 Other 3 Sister Social History Tobacco Use Types Packs/Day Years Used Date Smoking Tobacco: Never Smokeless Tobacco: Never Tobacco Cessation:Counseling Given: Not Answered Alcohol Use Standard Drinks/Week Comments Yes 0 (1 standard drink = 0.6 oz pur e alcohol) social AUDIT-C Answer Date Recorded Q1: How often do you have a drink containing alc ohol? Monthly or less 12/07/2021 Q2: How many drinks containi ng alcohol do you have on a typical day when you are drinking? 1 or 2 12/07/2021 Q3: How often do you have si x or more drinks on one occasion? Never 12/07/2021 Personal Safety Answer Date Recorded Have you ever been in or are you currently in a harmful physical or emotional relationship or is someone making you feel afraid or unsafe? 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 Gender Identity Not on file Sexual Orientation Not on file Obstetrics History Last Filed Vital Signs Vital Sign Reading Time Taken Comments Blood Pressure 124/74 10/28/2024 9:07 AM CDT Pulse 70 10/28/2024 9:07 AM CDT Temperature - - Respiratory Rate 16 02/22/2024 9:49 AM CDT Oxygen Saturation 99% 10/28/2024 9:07 AM CDT Inhaled Oxygen Concentration - - Weight 84.4 kg (186 lb) 10/28/2024 9:07 AM CDT Height 162.6 cm (5' 4) 10/28/2024 9:07 AM CDT Body Mass Index 31.93 10/28/2024 9:07 AM CDT Plan of Treatment Health Maintenance Due Date Last Done Comments Colon Cancer Screening-Colonoscopy 1971 Depression Screening 1971 Hepatitis C Screening 1971 DTaP/Tdap/Td Vaccine (1 - Tdap) 11/13/1982 Hepatitis B Screening 11/13/1989 Regular Well Visit/Exam 18-64 11/13/1989 Zoster Vaccine (1 of 2) 11/13/2021 Breast Cancer Screening-Mammogram 09/10/2023 09/09/2022 Covid-19 Vaccine ( - 2023-2 5 season) 2024 08/07/2020, 07/09/2020 Influenza Vaccine (#1) 2025 7, 06/19/2016 Pneumococcal vaccine <65 Aged Out No longer eligible based on patient's age to complete this topic Procedures Procedure Name Priority Date/Time Associated Diagnosis Comments BOTOX INJECTION Routine 10/28/2024 9:15 AM CDT Chronic migraine without aura without status migrainosus, not intractable SCREENING MAMMOGRAM BILATERAL W ROBERT Schedule Routine, Read Routine (OP Routine) 09/09/2022 8:04 AM CDT Screening mammogram, encounter for from Last 3 Months or Most Recently Relevant to Health Maintenance Results * Botox Injection (10/28/2024 9:15 AM CDT) Narrative Kayleen Zamorano - 10/28/2024 9:15 AM CDT Kayleen Zamorano 10/29/2024 9:41 AM Botox Injection Performed by: Elan Iverson MD Authorized by: Elan Iverson MD Rand Protocol: Procedure Details - Botox Injection: Procedure Details: See Botox flow sheet for details on injection sites and amounts. Specialty pharmacy used. us Elan Iverson MD IN CLINIC/BEDSIDE ORDERABL ES Final Result * Screening Mammogram Bilateral W Robert (09/09/2022 8:04 AM CDT) Anatomical Region Laterality Modality Breast Bilateral Mammography Narrative 09/13/2022 10:37 AM CDT Mammogram Technique: Bilateral Digital Breast Tomosynthesis, Bilateral C-view 2D Screening mammogram. Views obtained: bilateral craniocaudal and bilateral mediolateral oblique. Computer Aided Detection was performed. Mammogram Findings: The present examination has been compared to prior imaging studies performed at [facility]. [facility] on 12/17/2017 and 09/08/2019. There are scattered areas of fibroglandular density. Finding 1: There is a focal asymmetry in the middle of the right breast at 9 o'clock. Finding 2: There is asymmetry in the middle upper mediolateral oblique view of the left breast. Impression: Finding 1: Focal asymmetry in the right breast requires additional evaluation. Diagnostic mammogram and possible ultrasound of the right breast are recommended at this time. Finding 2: Asymmetry in the left breast requires additional evaluation. Diagnostic mammogram and possible ultrasound of the left breast are recommended at this time. OVERALL FINAL ASSESSMENT: BI-RADS CATEGORY 0: Incomplete: Need additional imaging evaluation. Procedure Note Trinidad Márquez MD - 09/13/2022 Mammogram Technique: Bilateral Digital Breast Tomosynthesis, Bilateral C-view 2D Screening mammogram. Views obtained: bilateral craniocaudal and bilateral mediolateral oblique. Computer Aided Detection was performed. Mammogram Findings: The present examination has been compared to prior imaging studies performed at [facility]. [facility] on 12/17/2017 and 09/08/2019. There are scattered areas of fibroglandular density. Finding 1: There is a focal asymmetry in the middle of the right breastat 9 o'clock. Finding 2: There is asymmetry in the middle upper mediolateral oblique view of the left breast. Impression: Finding 1: Focal asymmetry in the right breast requires additional evaluation. Diagnostic mammogram and possible ultrasound of the right breast are recommended at this time. Finding 2: Asymmetry in the left breast requires additional evaluation. Diagnostic mammogram and possible ultrasound of the left breast are recommended at this time. OVERALL FINAL ASSESSMENT: BI-RADS CATEGORY 0: Incomplete: Need additional imaging evaluation. us Self Screening Mammogram IMG MAMMO PROCEDURES Fi nal Result from Last 3 Months or Most Recently Relevant to Health Maintenance Insurance [facility] Address: [place] [address] [place] [address] [facility] [place] [address] [facility] [employer] [facility] [employer] Address: [facility] [address] [place] [address] Care Teams Skiver Counter Relationship Specialty Start Date End Date Tom Norris MD [address] [facility] [address] [place] [address] PCP - General Internal Medicine 08/31/23
--- OUTSIDE RECORDS SUMMARY | 2024-12-04 17:16 | XMS_ITS | Encounter Summary ---
Author Organization [facility] Healthcare Address [address] [place] [address] Care Team Providers Care Casework Supervisor Name Role Phone Juana Gasca MD Primary Care Provider Reason for Visit * Diagnostic Imaging (Routine) - Closed Specialty Diagnoses / Procedures Referred By Contac t Referred To Contact Procedures Breast Imaging Screening Outside Reference Referral, Self Referral ID Status Reason Start Date Expiration Date Visits Re quested Visits Authorized [id number] Closed 09/12/2022 10/12/2023 1 1 Encounter Details Date Type Department Care Team (Late st Contact Info) Description 09/08/2019 Hospital Encounter [facility] [address] [place] [id number] Social History Tobacco Use Types Packs/Day Years Used Date Smoking Tobacco: Never Smokeless Tobacco: Never Alcohol Use Standard Drinks/Week Comments Yes 0 [...] on file 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 Monthly or less 12/07/2021 2:50 PM CDT Yoana Stanley MA Q2: How many drinks containing alcohol do you have on a typical day when you are drinking? 1 or 2 12/07/2021 2:50 PM CDT Marlena Stanley M A Q3: How often do you have six or more drinks on one occasion? Never 12/07/2021 2:50 PM CDT Marlena Stanley M A documented as of this encounter Plan of Treatment Not on file documented as of this encounter Procedures Procedure Name Priority Date/Time Associated Diagnosis Comments BREAST IMAGING MG SCREENING OUTSIDE REFERENCE Routine 09/08/2019 12:00 AM CDT documented in this encounter Results * Breast Imaging Screening Outside Reference (09/08/2019 12:00 AM CDT) Impressions [facility] - 09/12/2022 1:22 PM CDT These images are for Reference purposes only and have not been reviewed by [facility]. There will be no report generated by a [facility] Radiologist. Narrative [facility] - 09/12/2022 1:22 PM CDT EXAMINATION: Images For Reference Purposes Only us Self Referral IMG MAMMO PROCEDURES Final Resul t [facility] documented in this encounter Visit Diagnoses Not on filedocumented in this encounter Care Teams Casework Supervisor Relationship Specialty Start Date End Date Juana Gasca MD [address] [place] [address] PCP - General 09/21/16 08/30/23 documented as of this encounter
--- OUTSIDE RECORDS SUMMARY | 2024-12-04 17:16 | XMS_ITS | Referral Summary ---
Author Organization [facility] Address [address] [place] [address] Care Team Providers Care Boiler Water Tester Name Role Phone Tom Norris MD Primary Care Provider [phone] Encounters Date Type Department Care Team Description 10/28/2024 9:15 AM CDT Procedure visit [facility] [address] [address] Elan Iverson MD Chronic migraine without aura without status migrainosus, not intractable (Primary Dx) from Last 3 Months Allergies Active Allergy Reactions Criticality Noted Date [...] injections Assessment & Plan (06/08/2023 12:26 PM PAVER OPERATOR): Repeat Botox injection Assessment & Plan (03/16/2023 [...] months. Assessment & Plan (06/16/2022 10:55 AM PAVER OPERATOR): Repeated Botox injection Assessment & Plan (03/01/2022 [...] Resolved - using much less since botox Immunizations Immunization Administration Dates Next Due Influenza, Trivalent, Preservative Free, Intramu scular 06/19/2016 Moderna SARS-CoV-2 Monovalent Vaccination (12+ Y RS) 08/07/2020,07/09/2020 Social History Tobacco Use Types Packs/Day Years [...] on file Legal Sex Female 8:25 PM PAVER OPERATOR Gender Identity Not on file Sexual Orientation Not on file Last Filed Vital Signs Vital Sign Reading [...] 10/28/2024 9:07 AM CDT Plan of Treatment Not on file Procedures Procedure Name Priority Date/Time Associated Diagnosis [...] Iverson MD Authorized by: Elan Iverson MD [place] Protocol: Procedure Details - Botox Injection: Procedure [...] compared to prior imaging studies performed at [facility] on 12/17/2017 and 09/08/2019. There are [...] compared to prior imaging studies performed at [facility] on 12/17/2017 and 09/08/2019. There are [...] Most Recently Relevant to Health Maintenance Insurance [employer] [place] [id number] [employer] Care Teams Boiler Water Tester Relationship Specialty Start Date End Date Tom Norris MD [address] [facility] [address] [place] [address] PCP - General Internal Medicine 08/31/23
--- OUTSIDE RECORDS SUMMARY | 2024-12-04 17:16 | XMS_ITS | Encounter Summary ---
Author Organization [facility] Healthcare Address [address] [place] [address] Care Team Providers Care Take Off Worker Name Role Phone Juana Gasca MD Primary Care Provider [phone] Reason for Visit * Diagnostic Imaging (Routine) - Closed Specialty Diagnoses / Procedures Referred By Contac t Referred To Contact Procedures Breast Imaging Screening Outside Reference Referral, Self Referral ID Status Reason Start Date Expiration Date Visits Re quested Visits Authorized [id number] Closed 09/12/2022 10/12/2023 1 1 Encounter Details Date Type Department Care Team (Late st Contact Info) Description 12/17/2017 Hospital Encounter [facility]iology [facility] [address] [place] [id number] Social History Tobacco Use Types Packs/Day Years [...] on file 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. There will be no report generated by a [facility] Radiologist. Narrative [facility] - 09/12/2022 1:23 PM CDT EXAMINATION: Images For Reference Purposes Only us Self Referral IMG MAMMO PROCEDURES Final Resul t [facility] documented in this encounter Visit Diagnoses Not on filedocumented in this encounter Care Teams Take Off Worker Relationship Specialty Start Date End Date Juana Gasca MD [address] [place] [address] PCP - General 09/21/16 08/30/23 documented as of this encounter
--- OUTSIDE RECORDS SUMMARY | 2024-12-04 17:16 | XMS_ITS | Clinical Summary ---
Author Organization [facility] Address [address] [place] [address] Care Team Providers Care Gold Leaf Printer Name Role Phone Tom Norris Primary Care Provider [phone] Source Comments [facility],non-owned Affiliates and Associated Physician Practices is amultiple site organization consisting of ambulatory clinics and hospital sitesin [place], [place], [place] and [place]. This disclosure is being madepursuant to the Care Everywhere program and may not contain all information available regarding this patient. Last updated 18.[facility] Allergies Active Allergy Reactions Criticality Noted Date Comments Penicillins Unknown 02/07/2018 Told as child Medications * Be aware that medications may not be up to date on this document. Alwaysverify current medications with the patient. SUMAtriptan Succinate (IMITREX PO) Active OnabotulinumtoxinA (BOTOX IJ) Active Family History Medical History Relation Name Comments Cancer - Breast Mother Cancer - Ovarian Sister Relation Name Status Comments Mother Sister Social History Tobacco Use Types Packs/Day Years Used Date Smoking Tobacco: Never Smokeless Tobacco: Never Comments No Sex and Gender Information Value Date Recorded Sex Assigned at Not on file Legal Sex Female 4:11 AM CDT Gender Identity Not on file Sexual Orientation Not on file Last Filed Vital Signs Vital Sign Reading Time Taken Comments Blood Pressure 112/78 02/07/2018 11:30 AM CDT Pulse 86 02/07/2018 11:30 AM CDT Temperature 37 C (98.6 F) 02/07/2018 11:30 AM CDT Respiratory Rate - - Oxygen Saturation 97% 02/07/2018 11:30 AM CDT Inhaled Oxygen Concentration - - Weight 92.1 kg (203 lb) 02/07/2018 11:30 AM CDT Height 162.6 cm (5' 4) 02/07/2018 11:30 AM CDT Body Mass Index 34.84 02/07/2018 11:30 AM CDT Plan of Treatment Health Maintenance Due Date Last Done Comments COLOGUARD (AGES 45-75) - COL ON CA SCREENING 1971 COLON MONITORING 1971 COLONOSCOPY - COLON CA SCREENING 1971 CT COLONOGRAPHY - COLON CA SCREENING 1971 Colorectal Cancer Screening 1971 FIT - COLON CA SCREENING 1971 FLEX SIG - COLON CA SCREENING 1971 LIPID TESTING 1971 MAMMOGRAM 1971 HIV SCREENING 11/13/1986 HEPATITIS C SCREENING 11/09/1989 DTAP/TDAP/TD VACCINES (1 - Tdap) 11/13/1990 HEPATITIS B VACCINE (1 of 3 - 19+ 3-dose series) 11/13/1990 SCREENING FOR DIABETES 02/07/2018 PNEUMOCOCCAL VACCINE 50+ (1 of 1 - PCV) 11/13/2021 ZOSTER VACCINE (1 of 2) 11/13/2021 COVID-19 VACCINE (1 - 2023-2 5 season) 2024 DEPRESSION SCREENING 05/28/2024 INFLUENZA VACCINE (#1) 2025 06/19/2016 HIB VACCINE Aged Out No longer eligi ble based on patient's age to complete this topic HPV VACCINE Aged Out No longer eligi ble based on patient's age to complete this topic MENINGOCOCCAL (Group B) VACC INE SHARED DECISION-MAKING Aged Out No longer eligibl e based on patient's age to complete this topic MENINGOCOCCAL GROUPS A/C/Y/W VACCINE Aged Out No longer eligible b ased on patient's age to complete this topic Insurance [facility] Care Teams Gold Leaf Printer Relationship Specialty Start Date End Date Tom Norris DO [address] [facility] [address] [place] [address] PCP - General Internal Medicine 02/07/18
--- NOTE | 2024-12-04 17:20 | ED_ITS ---
HPI - URI/Sore Throat General Chief Complaint: Upper Respiratory Infection Stated Complaint: coughing/ear pain/swelling Time Seen by Provider: 12/04/24 17:21 Source: patient, RN notes reviewed and old records reviewed Mode of arrival: ambulatory Limitations: no limitations History of Present Illness HPI Narrative: 54-year-old female presents to the [facility] with 3 week history of cough, productive cough the 1st several days, sinus congestion. Also reports a sore throat, right ear pain as started couple days ago. Symptoms have been waxing and weaning for the last 2 weeks however got worse over the last 2 days. Has taken [id number] products Denies fevers. Onset (ago): week(s) (2) Treatments prior to arrival: cold medicine Related Data Home Medications ?Medication ?Instructions ?Recorded ?Confirmed ?Last Taken ?Type onabotulinumtoxinA 200 unit 200 unit IM MONTHLY 11/03/20 04/18/24 Unknown History solution for injection (Botox) sumatriptan succinate 100 mg 100 mg PO ONCE PRN Migraine 11/03/20 04/18/24 Unknown History tablet (Imitrex) Headache atogepant 60 mg tablet (Qulipta) 60 mg PO DAILY 09/21/22 04/18/24 Unknown History Allergies Allergy/AdvReac Type Severity Reaction Status Date / Time Penicillins Allergy Intermediate Rash Verified 12/04/24 17:22 nirmatrelvir (From Paxlovid) Allergy Mild Rash Verified 12/04/24 17:22 ritonavir (From Paxlovid) Allergy Mild Rash Verified 12/04/24 17:22 Review of Systems Review of Systems: All systems reviewed & are unremarkable except as noted in HPI and below Constitutional: Constitutional: Reports no additional constitutional complaints ENT: Reports as per HPI Cardiovascular: Cardiovascular: Reports no additional cardiovascular complaints, Denies chest pain and Denies dyspnea Respiratory: Respiratory: Reports as per HPI, Reports chest congestion, Reports cough and Denies dyspnea Musculoskeletal: Musculoskeletal: Reports no additional musculoskeletal c omplaints Integumentary/Breasts: Skin/Breast: Reports system reviewed and no additional complaints, except as docu PMFSH Past Medical History Medical History Paroxysmal supraventricular tachycardia GERD (gastroesophageal reflux disease) Hiatal hernia Obesity Migraine headache Surgical History Surgical History Hx of hernia repair Robotic assisted laparoscopic paraesophageal hernia repair, 270 degree fundoplication on 03/06/23 RHW Hx of tonsillectomy S/P placement of nerve stimulator implanted 2015 and removed 2017 History of hysterectomy Hx laparoscopic cholecystectomy Family History Family History Father Patient's father is in good health Diabetes mellitus Hypertension Family history of malignant neoplasm Mother Family history of malignant neoplasm of breast in first degree relative Social History Social History Smoking status: Never smoker Second hand tobacco smoke exposure: No Alcohol intake: current Alcohol use details: rarely Substance use: never Substance use type: does not use Lack of Transportation: No Lack of Food: Never True Current Housing: I Have Housing Concerned About Future Housing: No Difficulty Paying Gas/Electric Bills: No Difficulty Paying for Meds: No Currently Unemployed: No Education: Master's Degree or Higher Difficulty w/ Childcare or Family Care: No Living arrangements: with family Spiritual care concerns: No Comments At the time of my signature, I reviewed and agree with the nursing past medical, surgical, social, and family history. There is no relevant family history pertinent to the patient complaint. Exam Const: General: cooperative, healthy appearing, comfortable, no acute distress, well developed, alert and well nourished Nutritional Appearance: well nourished Orientation/consciousness: patient oriented x3 Limitations: no limitations HENMT: Head: normal to inspection Ears: hearing grossly normal bilaterally, external ears normal, TM's normal bilaterally, EAC's normal, mastoids normal and no periauricular adenopathy Face/Nose/Sinus: Normal external nose present and No nasal discharge present Mouth: Yes Normal oral and palatal mucosa present, Yes lip normal, Yes tongue normal and Yes moist mucous membranes Throat: posterior oropharynx normal, uvula midline, postnasal drainage and no uvular edema Eyes: General: appearance normal, both eyes and all related structures Alignment and Position: alignment normal Neck: Neck: normal visual inspection, full ROM, no lymphadenopathy and no meningeal signs Chest: Chest palpation & inspection: normal inspection of the chest Resp: Effort & Inspection: normal respiratory effort and able to speak in complete sentences Auscultation: clear to auscultation bilaterally, no crackles, no rales, no rhonchi and no wheezes Cardio: Rate: regular rate Skin: General skin exam: normal color and no rashes or lesions noted Neuro: General: patient oriented x3, gait normal, moves all extremities and no meningeal signs Cognition (Neuro): normal cognition Speech: normal speech Gait exam (Neuro): Normal gait present Extrem: General: normal to inspection, full ROM, capillary refill normal and normal gait Psych: Appearance: grossly normal and well kempt Mental Status: mental status grossly normal Speech and movement: Normal speech and movement present and Clear speech present Affect: normal affect Attitude: cooperative Course Course Level of Care: Express Care Visit Vital Signs Vital signs: Vital Signs Temperature 98.4 F 12/04/24 17:21 Pulse Rate 78 12/04/24 17:21 Respiratory Rate 18 12/04/24 17:21 Blood Pressure 134/85 12/04/24 17:21 Pulse Oximetry 97 12/04/24 17:21 Oxygen Delivery Room Air 12/04/24 17:21 Temperature 98.4 F 12/04/24 17:21 Pulse Rate 78 12/04/24 17:21 Respiratory Rate 18 12/04/24 17:21 Blood Pressure 134/85 12/04/24 17:21 Pulse Oximetry 97 12/04/24 17:21 Oxygen Delivery Room Air 12/04/24 17:21 Reviewed MDM - URI/Sore Throat MDM Narrative Medical decision making narrative: Patient sitting in exam room. Patient is nontoxic, vitals are stable. Patient presents 2 week history of URI symptoms, sinusitis, bronchitis. No acute findings noted on exam Patient appropriate for outpatient treatment with close follow Discharge instructions reviewed with patient, as well as provided in writing per nursing staff. The instructions also include specific and strict return/GO TO THE ER as well as f/u information. All questions have been answered, and the patient deny any further questions with discharge and discharge plan. Some parts of this dictation were generated by voice recognition software and may contain typographical and/or grammatical inaccuracies. Differential Diagnosis Differential diagnosis: Likely upper respiratory infection, otitis media, sinusitis, viral infection, bronchitis, influenza and pharyngitis Critical Care Time Critical Care Time Critical Care Time: No Discharge Plan Discharge Clinical Impression: Bronchitis, Sinusitis, Acute serous otitis media of right ear Patient Disposition: Home Condition: Stable Instructions: Antibiotic Form, Sinusitis (ED), Acute Bronchitis (ED), Fluid In The Ear (Serous Otitis Media) (ED) Additional Instructions: It is very important to treat your symptoms. Drink plenty of water, Gatorade, Pedialyte, ice pops or Jell-O. -Alternate Tylenol and Motrin per package directions for fever or pain. You can alternate every 4 hours -Antihistamine medication such as Zyrtec/Claritin/Zayda during the day can help improve symptoms. -doing daily nasal irrigations can help relieve pressure your sinuses. Things like a Neti pot -Use Flonase twice a day for 5 days then daily to help reduce the inflammation and dry up your sinuses. -You can also use Mucinex. Be sure to drink plenty of water with this medication at least 8 ounces with every dose and it is important to drink 8 to 10 glasses of water per day. Water is a natural decongestant -Eat and drink things that are easy to swallow, like tea or soup, or popsicles. -Oral rinses such as: Salt water gargles and/or may use topical anesthetic (eg. Chloraseptic spray) or lozenges to relieve dryness or throat pain). -Frequent hand washing or hand braille transcriber is one of the best ways to prevent spread of infection. -Using a vaporizer or humidifier at night will also help thin secretions and help with coughing up phlegm. -Follow up with primary care provider in 7-10 days if condition is not improving - For new or worsening symptoms go directly to the nearest ER Patient Language: Moroccan Prescriptions: New doxycycline monohydrate 100 mg tablet 100 mg PO BID Qty: 14 0RF methylprednisolone [Medrol (Jerad)] 4 mg tablets,dose pack See Rx Instructions PO .COMPLEX Qty: 21 0RF Rx Instructions: orally per package directions No Action sumatriptan succinate [Imitrex] 100 mg tablet 100 mg PO ONCE PRN (Reason: Migraine Headache) Botox 200 unit recon soln 200 unit IM MONTHLY Rx Instructions: every 3 months Qulipta 60 mg tablet 60 mg PO DAILY Follow-up/Referrals: Deshawn Vargas DO [Primary Care Provider] - 2 Weeks ([facility] care follow up ) Time of Disposition: 17:29
[2024-12-04 17:21] VITALS: BP 134/85; PULSE 78; RESP 18; TEMP 36.9; O2SAT 97
== END 2024-12-04 17:33 | disposition home or self-care (01) ==
PROVIDERS: Emergency Provider Nurse Practitioner; PCP Internal Medicine
DX: J40 Bronchitis, not specified as acute or chronic (principal); J32.9 Chronic sinusitis, unspecified; H65.01 Acute serous otitis media, right ear; K21.9 Gastro-esophageal reflux disease without esophagitis; E66.9 Obesity, unspecified; Z68.30 Body mass index [BMI] 30.0-30.9, adult
CPT/HCPCS: 99213; G0463

== ENCOUNTER 2025-01-29 00:28 | Day surgery (SDC) | payer OTHER, SELFPAY ==
[2025-01-22 14:04] VITALS: BMI 30.9
[2025-01-29 12:07] VITALS: BP 126/84; PULSE 78; RESP 18; TEMP 36.5; O2SAT 100
[2025-01-29] MEDS: LACTATED RINGERS 1,000 ML 150 ML IV CONT (12:45)
--- NOTE | 2025-01-29 12:51 | WPDANESEPPF ---
Anes - Initial Pre Proc Eval Procedure: Operation Date: 01/29/25 13:30 Proposed Procedures p EGD & Diagnostic Colonoscopy - Jose J Giron MD Date/Time: 01/29/25 12:51 Surgeon: Jose J Giron MD Pre Op Diagnosis: Gastro-esophageal reflux disease without esophagit Patient Data Age: 54 Gender: F Height: 1.63 m Weight: 81 kg Last Vital Signs Temp 97.7 F 01/29/25 12:07 Pulse 78 01/29/25 12:07 Resp 18 01/29/25 12:07 BP 126/84 01/29/25 12:07 Pulse Ox 100 01/29/25 12:07 O2 Del Method Room Air 01/29/25 12:07 Allergies Allergy/AdvReac Type Severity Reaction Status Date / Time Penicillins Allergy Intermediate Rash Verified 01/29/25 12:05 nirmatrelvir (From Paxlovid) Allergy Mild Rash Verified 01/29/25 12:05 ritonavir (From Paxlovid) Allergy Mild Rash Verified 01/29/25 12:05 Home Medications ?Medication ?Instructions ?Recorded ?Confirmed ?Type onabotulinumtoxinA 200 unit 200 unit IM MONTHLY 11/03/20 01/22/25 History solution for injection (Botox) sumatriptan succinate 100 mg 100 mg PO ONCE PRN Migraine 11/03/20 01/22/25 History tablet (Imitrex) Headache atogepant 60 mg tablet (Qulipta) 60 mg PO DAILY 09/21/22 01/22/25 History semaglutide 0.25 mg/0.05 mL 0.85 mg subcut WEEKLY 12/17/24 01/22/25 History subcutaneous syringe Patient hx anesthesia problems: none Family hx anesthesia problems: none Results Review: All pre-operative results and documents have been reviewed as part of the pre-operative evaluation. [facility] Past Medical History Medical History (Updated 01/21/25 @ 15:14 by Jose J Giron MD) Lower abdominal pain Tear of peroneal tendon of left foot Right-sided thoracic back pain Migraine, unspecified, intractable, without status migrainosus Tension type headache, unspecified Body mass index [BMI] 40.0-44.9, adult (05/29/17) Body mass index [BMI] 37.0-37.9, adult (06/20/17) Anemia Acute medial meniscus tear of right knee Acute deep vein thrombosis (DVT) of popliteal vein of right lower extremity Weight gain Solitary pulmonary nodule Peroneal tendinitis of left lower extremity Pain of right calf Hyperglycemia Foot pain, left Flat foot [pes planus] (acquired), left foot (02/11/19) Flat foot Diarrhea in adult patient Diaphragmatic hernia without obstruction or gangrene Cough Chronic pain of right knee Chondromalacia patellae, right knee Adult general medical examination Acute swimmer's ear of left side Acute radicular low back pain Paroxysmal supraventricular tachycardia GERD (gastroesophageal reflux disease) Hiatal hernia Obesity Migraine headache Surgical History Surgical History (Updated 01/21/25 @ 15:18 by Jose J Giron MD) Hx of hernia repair Robotic assisted laparoscopic paraesophageal hernia repair, 270 degree fundoplication on 03/06/23 RHW Hx of tonsillectomy S/P placement of nerve stimulator implanted 2015 and removed 2016 History of hysterectomy Hx laparoscopic cholecystectomy Family History Family History Father Patient's father is in good health Diabetes mellitus Hypertension Family history of malignant neoplasm Mother Family history of malignant neoplasm of breast in first degree relative Social History Social History Smoking status: Never smoker Second hand tobacco smoke exposure: No Alcohol intake: never Alcohol use details: rarely Substance use: former Substance use type: marijuana Other substance usage details: Hasn't done recently Lack of Transportation: No Lack of Food: Never True Current Housing: I Have Housing Concerned About Future Housing: No Difficulty Paying Gas/Electric Bills: No Difficulty Paying for Meds: No Currently Unemployed: No Education: Master's Degree or Higher Difficulty w/ Childcare or Family Care: No Living arrangements: with family Spiritual care concerns: No Anes - Eval Final PreProcedure Day of Procedure 01/29/25 12:51 Patient weight: obese Heart: regular rate and rhythm Lungs: clear to auscultation Airway: Mallampati scale class II Neurological: alert and oriented Last oral intake: >/= 8 hours ASA classification: II Emergent: no Anesthetic plan: proceed Anesthesia type and monitoring: general GIVS and standard monitoring Results Review: All pre-operative results and documents have been reviewed as part of the pre-operative evaluation. Informed Consent: The patient's anesthetic plan and its attendant risks and benefits were discussed with the patient/family/POA. Questions were solicited and answers provided to the satisfaction of the patient/family/POA.
--- NOTE | 2025-01-29 13:11 | WPDHPUPDATE1 ---
History and Physical Update Update Date/Time: 01/29/25 13:11 History and Physical has been reviewed, including an updated exam of the patient. There are NO changes in the patient's condition. Risks, benefits, and alternatives have been discussed and questions answered. Patient agrees to proceed with procedure.
--- NOTE | 2025-01-29 13:18 | SUR.OPER ---
EGD end at 1317 ; colonoscopy started at 1321
--- NOTE | 2025-01-29 13:23 | S_PTH ---
PATIENT: Cristina Cornejo LOC: [facility]#:[id number] AGE/SX: 54/F ROOM: RE01/29/[address]: Jose J Giron MD : 1970 BED: DIS: 01/29/2025 SPEC #: [id number] RECD: 01/29/25 14:21 STATUS: TRISTA REQ #: [id number] JASVIR: 01/29/25 13:[address]: Jose J Giron DEPT: [facility] Surgical RECD BY: Miri White ENTERED: 01/29/25 14:21 SP TYPE: Surgical OTHR DR: Deshawn Vargas DO Tissues: A - Gastric Biopsy B - Colon Polypectomy Procedures: Hematoxylin and Eosin Stain Gross and Microscopic Level 4
[2025-01-29 13:33] VITALS: BP 113/53; PULSE 73; RESP 16; O2SAT 100
[2025-01-29 13:43] VITALS: BP 110/61; PULSE 81; RESP 17; O2SAT 98
[2025-01-29 13:53] VITALS: BP 124/74; PULSE 79; RESP 19; O2SAT 100
== END 2025-01-29 14:02 | disposition home or self-care (01) ==
PROVIDERS: PCP Internal Medicine; Visit Provider Internal Medicine Gastroenterology
PROC: 0DJ08ZZ Inspection of Upper Intestinal Tract, Via Natural or Artificial Opening Endoscopic (ICD-10-PCS; CPT 45378; principal; 2025-01-29 13:30)
DX: R10.30 Lower abdominal pain, unspecified (principal); K21.9 Gastro-esophageal reflux disease without esophagitis; K57.30 Diverticulosis of large intestine without perforation or abscess without bleeding; K63.5 Polyp of colon; E66.9 Obesity, unspecified; Z68.30 Body mass index [BMI] 30.0-30.9, adult
CPT/HCPCS: 45378; 43239; 88305; J2003; J2704; J7120